=== PATIENT | male | born 1950 | race Caucasian/White ===

== ENCOUNTER 2017-08-13 14:18 | Emergency (ER) | payer MEDICARE, OTHER, SELFPAY ==
[2017-08-13 14:27] VITALS: BP 139/91; PULSE 85; RESP 15; TEMP 37.1; O2SAT 96
--- NOTE | 2017-08-13 14:40 | ED.SKABFB ---
HPI - Skin/Abscess/Foreign Bdy <STEPHEN Ellis - Last Filed: 08/13/17 22:08> General Chief complaint: Skin/Abscess/Foreign Body Stated complaint: Infection Time Seen by Provider: 08/13/17 14:23 History of Present Illness HPI narrative: A 66-year-old male here for complaint of erythema to his left lower extremity since yesterday. He states that he had a small sore that leaked some purulent material he states that he got it all out he also states that he cleaned it with hydrogen peroxide. He states he still has some erythema to his left lower extremity. He denies any trauma to the area. No fevers no chills. No other concerns or complaints although he does state that he would like to have some pain medications as he is waiting to get into pain management that starts next week. Patient is ambulatory into the emergency room. Related Data Home Medications Medication Instructions Recorded Confirmed omeprazole 20 mg PO DAILY #0 01/16/11 08/19/17 albuterol sulfate [Proventil HFA] 1 puff INH PRN PRN #17 gm 10/13/11 08/16/17 atenolol 100 mg PO QDAY #0 10/13/11 08/19/17 metformin [Glucophage] 500 mg PO BID #0 10/13/11 08/19/17 zolpidem 5 mg PO HSP PRN #0 10/13/11 08/19/17 furosemide [Lasix] 20 mg PO QDAY #0 08/26/16 08/19/17 lisinopril 5 mg PO QDAY #0 08/26/16 08/19/17 acetaminophen 650 mg PO PRN PRN #0 07/05/17 08/16/17 alum-mag hydroxide-simeth [Maalox 30 ml PO Q6HP PRN #0 07/05/17 08/16/17 Maximum Strength] carboxymethylcellulose sodium 1 drp OPHTH PRN PRN #0 07/05/17 08/19/17 [Refresh Tears] diazepam 5 mg PO Q12HP PRN #0 07/05/17 08/19/17 metoprolol succinate 50 mg PO QDAY #0 07/05/17 08/19/17 meclizine 25 mg PO TID 08/16/17 08/19/17 hydrocodone-acetaminophen 1 tab PO QID PRN 08/19/17 08/19/17 mupirocin 1 applic TOPICAL DIRECTED 08/19/17 08/19/17 Previous Rx's Medication Instructions Recorded clindamycin HCl 300 mg PO QID #28 cap 08/13/17 Allergies Allergy/AdvReac Type Severity Reaction Status Date / Time No Known Drug Allergies Allergy Unknown Verified 08/18/17 22:06 [NO KNOWN DRUG ALLERGIES] NSAIDS (Non-Steroidal AdvReac Intermediate BLEEDING Verified 08/18/17 22:06 Anti-Inflamma ULCERS celecoxib AdvReac Unknown Verified 08/18/17 22:06 diclofenac AdvReac Unknown Verified 08/18/17 22:06 oxycodone AdvReac Unknown Verified 08/18/17 22:06 prednisone AdvReac Unknown Verified 08/18/17 22:06 Review of Systems <STEPHEN Ellis - Last Filed: 08/13/17 22:08> Constitutional Denies chills, Denies fever(s), Denies lethargy and Denies weakness ENT Ears, Nose, Mouth, and Throat: Denies change in voice, Denies neck pain and Denies sore throat Cardiovascular Denies dyspnea and Denies dyspnea on exertion Respiratory Denies cough, Denies dyspnea, Denies dyspnea on exertion and Denies wheezing Musculoskeletal Denies neck pain Comments: Erythema to left lower extremity Integumentary/Breasts Denies pruritus, Denies erythema, Denies rash and Denies wounds Neurologic Denies weakness Allergic/Immunologic Denies wheezing Exam <STEPHEN Ellis - Last Filed: 08/13/17 22:08> Initial Vital Signs Initial Vital Signs: Vital Signs Temperature 98.8 F 08/13/17 14:27 Pulse Rate 85 08/13/17 14:27 Respiratory Rate 15 08/13/17 14:27 Blood Pressure 139/91 H 08/13/17 14:27 Pulse Oximetry 96 08/13/17 14:27 Const General: cooperative and well developed Nutritional Appearance: well nourished Orientation: alert, awake, oriented x3 and not confused [facility] Mouth: oral mucosae normal, oropharynx normal and moist mucous membranes Eyes General: appearance normal, both eyes and all related structures Conjunctivae: conjunctivae normal Sclera: sclerae normal Pupils: PERRL EOM: EOM intact bilaterally Resp Effort & Inspection: normal respiratory effort, able to speak in complete sentences, no respiratory distress and no use of accessory muscles Auscultation: clear to auscultation bilaterally, no rales, no rhonchi and no wheezes Cardio Rate: regular rate Rhythm: regular rhythm Heart Sounds: no click, no gallops, no murmurs and no rubs Pulses: normal peripheral pulses Skin Other: Neuro General: alert, oriented x3, gait normal and no focal motor deficits Cranial Nerves: CN's II-XI intact bilaterally Speech: speech normal Motor: strength 5/5 throughout Sensory Exam: no sensory deficits noted Extrem Other: Erythema to left anterior johnson no no induration no fluctuance. Distal sensation is intact. Distal pulses are intact. Distal range of motion intact <Se Jimenez DO - Last Filed: 09/01/17 07:34> Initial Vital Signs Initial Vital Signs: Vital Signs Temperature 98.8 F 08/13/17 14:27 Pulse Rate 85 08/13/17 14:27 Respiratory Rate 15 08/13/17 14:27 Blood Pressure 139/91 H 08/13/17 14:27 Pulse Oximetry 96 08/13/17 14:27 Course <STEPHEN Ellis - Last Filed: 08/13/17 22:08> Vital Signs - 8 hr 08/13/17 14:27 08/13/17 15:33 Temperature 98.8 F Pulse Rate 85 71 Respiratory Rate 15 16 Blood Pressure 139/91 H 109/71 Pulse Oximetry 96 98 <Se Jimenez DO - Last Filed: 09/01/17 07:34> Vital Signs - 8 hr 08/13/17 14:27 08/13/17 15:33 Temperature 98.8 F Pulse Rate 85 71 Respiratory Rate 15 16 Blood Pressure 139/91 H 109/71 Pulse Oximetry 96 98 MDM - Skin/Abscess/Foreign Bdy <STEPHEN Ellis - Last Filed: 08/13/17 22:08> MDM Narrative Medical decision making narrative: Slight erythema to the anterior left johnson no fluctuance or induration appreciated. Will treat for cellulitis. Patient states he has a history of MRSA will treat with clindamycin. [id number] Tylenol as needed for any discomfort. Follow up with primary care provider in the next few days for re-evaluation. For any worsening symptoms return to the emergency room. Discharge Plan Departure Patient Disposition: Home, Self-Care Clinical Impression: Cellulitis of left lower extremity Discharge Date/Time: 08/13/17 15:33 Interventions: ED Discharge Assessment Last Done: 08/13/17 15:33 Instructions: DI for Cellulitis -- Adult Activity Restrictions/Additional Instructions: Signs and symptoms presents as as cellulitis to left lower extremity. Urine placed on an antibiotic called clindamycin use as directed. Use [id number] Tylenol as needed for any discomfort. Follow up with primary care provider the next few days for re-evaluation. For any worsening symptoms return to the emergency room. Prescriptions: New clindamycin HCl 300 mg capsule 300 mg PO QID Qty: 28 RF: 0 No Action omeprazole 20 MG tablet,delayed release (DR/EC) 20 mg PO DAILY Qty: 0 RF: 0 metformin [Glucophage] 500 MG tablet 500 mg PO BID Qty: 0 RF: 0 albuterol sulfate [Proventil HFA] 90 MCG/PUFF HFA aerosol inhaler 1 puff INH PRN PRN (Reason: Shortness Of Breath) Qty: 17 RF: 0 atenolol 100 MG tablet 100 mg PO QDAY Qty: 0 RF: 0 zolpidem 5 MG tablet 5 mg PO HSP PRN (Reason: Sleep) Qty: 0 RF: 0 furosemide [Lasix] 20 MG tablet 20 mg PO QDAY Qty: 0 RF: 0 lisinopril 5 MG tablet 5 mg PO QDAY Qty: 0 RF: 0 acetaminophen 325 MG tablet 650 mg PO PRN PRN (Reason: Pain, Mild) Qty: 0 RF: 0 alum-mag hydroxide-simeth [Maalox Maximum Strength] 355 ML suspension 30 ml PO Q6HP PRN (Reason: Indigestion) Qty: 0 RF: 0 carboxymethylcellulose sodium [Refresh Tears] 15 ML drops 1 drp OPHTH PRN PRN (Reason: Dry Eyes) Qty: 0 RF: 0 diazepam 5 MG tablet 5 mg PO Q12HP PRN (Reason: Anxiety) Qty: 0 RF: 0 metoprolol succinate 50 MG tablet extended release 24 hr 50 mg PO QDAY Qty: 0 RF: 0 hydrocodone-acetaminophen 5-325 mg tablet 1 tab PO QID PRN (Reason: Pain, Severe) RF: 0 mupirocin 2 % ointment 1 applic Topical DIRECTED RF: 0 meclizine 25 mg tablet 25 mg PO TID RF: 0 Referrals: Jaun Ibanez MD [Non-Staff] - <Se Jimenez DO - Last Filed: 09/01/17 07:34> Cosign ED Attending Cosignature Attestation: I was immediately available in the department for consultation. This documentation has been reviewed and I agree with assessment and plan. Supervised by Se Jimenez DO
[2017-08-13 15:33] VITALS: BP 109/71; PULSE 71; RESP 16; O2SAT 98
== END 2017-08-13 15:33 | disposition home or self-care (01) ==
PROVIDERS: Emergency Provider Nurse Practitioner Family
DX: L03.116 Cellulitis of left lower limb (principal)
CPT/HCPCS: 99282

== ENCOUNTER 2017-08-16 16:22 | Emergency (ER) | payer MEDICARE, OTHER, SELFPAY ==
[2017-08-16 16:30] VITALS: BP 116/73; PULSE 70; RESP 20; TEMP 36.7; O2SAT 98; BMI 29.9
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
[2017-08-16 17:43] LABS: Add Manual Diff / Slide Review NO; Basophils Percent Auto 0.5 % (0-2); Eosinophils Percent Auto 2.6 % (2-4); Hematocrit 42.8 % (41-53); Hemoglobin 15.2 g/dL (13.5-17.5); Lymphocytes Percent Auto 33.1 % (25-40); Mean Corpuscular HGB Conc 35.6 % (30-36); Mean Corpuscular Hemoglobin 35.3 PG (26-34); Mean Corpuscular Volume 99.1 fL (80-100); Monocytes Percent Auto 10.7 % (3-14); Neutrophils Absolute Auto 3100 /uL (3000-5900); Neutrophils Percent Auto 53.1 % (50-75); Platelet Count 189 X10^3/uL (150-400); Red Blood Cell Count 4.32 X10^6/uL (4.5-5.9); Red Cell Distribution Width 12.8 % (11.6-14.8); White Blood Cell Count 5.7 X10^3/uL (4.5-11.0)
[2017-08-16 18:01] LABS: BUN Creatinine Ratio 23.3 (6-22); Calcium 9.3 mg/dL (8.4-10.2); Estimated Glomerular Filt Rate > 60.0 mL/min (>60); Glucose 123 mg/dL (80-110); HEMOLYSIS < 15 (0-50); Lactate (Lactic Acid) 2.5 mmol/L (0.7-2.1); Potassium 3.9 mmol/L (3.4-5.1); Sodium 145 mmol/L (137-145)
[2017-08-16 18:08] VITALS: BP 97/60; PULSE 62; RESP 15; O2SAT 100
[2017-08-16 19:00] VITALS: BP 99/60; PULSE 120
[2017-08-16 19:30] VITALS: BP 113/73; PULSE 85
[2017-08-16 19:32] VITALS: BP 99/60; PULSE 68; RESP 14; O2SAT 100
[2017-08-16 21:23] LABS: Reflexed Lactate in 2 Hours Y
== END 2017-08-16 20:09 | disposition home or self-care (01) ==
PROVIDERS: Emergency Provider Emergency Medicine
DX: R60.0 Localized edema (principal)
CPT/HCPCS: 36591; 80048; 83605; 85025; 99283

== ENCOUNTER 2017-08-17 21:34 | Emergency (ER) | payer MEDICARE, OTHER, SELFPAY ==
[2017-08-17 21:54] VITALS: BP 119/72; PULSE 76; RESP 16; TEMP 36.6; O2SAT 100; BMI 30.7
--- NOTE | 2017-08-17 22:06 | PC.NURSE ---
present for exam with MD Betancur. Pt c/o repeated MRSA infection/swelling of lower ext for >10 years. Pt reports he was told to come here to be admitted, can not relay who gave him this information. Exam is limited r/t need for frequent redirect of pt. Denies cough/fever/vomiting/cp/soa/diarrhea, no erythema/drainage present in lower legs, + pedal pulses
[2017-08-17] MEDS: SODIUM CHLORIDE 0.9% 1,000 ML 1000 ML IV (22:24)
[2017-08-17] MEDS: VANCOMYCIN 1,500 MG in SODIUM CHLORIDE 0.9% 500 ML 333.333 ML IV (22:25)
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
[2017-08-17 22:37] LABS: Lactate (Lactic Acid) 1.3 mmol/L (0.7-2.1)
[2017-08-17 22:40] LABS: BUN Creatinine Ratio 23.8 (6-22); Calcium 9.3 mg/dL (8.4-10.2); Estimated Glomerular Filt Rate > 60.0 mL/min (>60); Glucose 98 mg/dL (80-110); HEMOLYSIS 18 (0-50); Potassium 4.1 mmol/L (3.4-5.1); Sodium 145 mmol/L (137-145)
[2017-08-17 22:44] LABS: Add Manual Diff / Slide Review NO; Basophils Percent Auto 0.6 % (0-2); Eosinophils Percent Auto 1.8 % (2-4); Hematocrit 42.4 % (41-53); Hemoglobin 15.2 g/dL (13.5-17.5); Lymphocytes Percent Auto 33.3 % (25-40); Mean Corpuscular HGB Conc 35.8 % (30-36); Mean Corpuscular Hemoglobin 35.3 PG (26-34); Mean Corpuscular Volume 98.5 fL (80-100); Monocytes Percent Auto 9.6 % (3-14); Neutrophils Absolute Auto 3400 /uL (3000-5900); Neutrophils Percent Auto 54.7 % (50-75); Platelet Count 170 X10^3/uL (150-400); Red Blood Cell Count 4.31 X10^6/uL (4.5-5.9); Red Cell Distribution Width 12.5 % (11.6-14.8); White Blood Cell Count 6.2 X10^3/uL (4.5-11.0)
[2017-08-17 22:54] LABS: Procalcitonin < 0.05 ng/mL (<0.5)
[2017-08-18 00:40] VITALS: BP 111/64; PULSE 68; RESP 14; TEMP 36.6; O2SAT 99
== END 2017-08-18 00:40 | disposition home or self-care (01) ==
PROVIDERS: Emergency Provider Emergency Medicine
DX: R60.9 Edema, unspecified (principal); L03.119 Cellulitis of unspecified part of limb
CPT/HCPCS: 36415; 80048; 83605; 84145; 85025; 87040; 96365; 96366; 99283; 99284

== ENCOUNTER 2017-08-18 21:23 | Emergency (ER) | payer MEDICARE, OTHER, SELFPAY ==
[2017-08-18 22:02] VITALS: BP 120/79; PULSE 86; RESP 15; TEMP 37.1; O2SAT 98; BMI 29.9
--- NOTE | 2017-08-18 22:27 | DI.US.S_ITS ---
PROCEDURE: US PERIPH VENOUS LOW EXTREM BI INDICATIONS: swelling pain hx dvt TECHNIQUE: Real-time imaging, as well as color and pulse Doppler interrogation, were performed of the deep veins of both legs from the inguinal ligament to the popliteal fossa. COMPARISON: Surgeons SRCUS, US, VEINS EXTREMITY DUPLEX,BILAT, 06/22/2011, 14:21. FINDINGS: Right: The deep veins are normally compressible, and free of intraluminal thrombus. Color and pulse Doppler demonstrate normal phasic intravascular flow. There is normal augmentation response to distal compression maneuver. Absence of greater saphenous vein. Left: The deep veins are normally compressible, and free of intraluminal thrombus. Color and pulse Doppler demonstrate normal phasic intravascular flow. There is normal augmentation response to distal compression maneuver. Absence of greater saphenous vein. IMPRESSION: No deep venous thrombosis in lower extremities. Dictated by: Buddy Ny M.D. on 08/19/2017 at 7:58 Approved by: Buddy Ny M.D. on 08/19/2017 at 8:00
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
[2017-08-18 22:28] VITALS: BP 120/79; PULSE 86; RESP 15; TEMP 37.1; O2SAT 98; BMI 29.9
[2017-08-18 23:02] LABS: Add Manual Diff / Slide Review NO; Basophils Percent Auto 0.7 % (0-2); Eosinophils Percent Auto 1.5 % (2-4); Hematocrit 43.4 % (41-53); Hemoglobin 15.3 g/dL (13.5-17.5); Lymphocytes Percent Auto 27.3 % (25-40); Mean Corpuscular HGB Conc 35.3 % (30-36); Mean Corpuscular Hemoglobin 35.2 PG (26-34); Mean Corpuscular Volume 99.7 fL (80-100); Monocytes Percent Auto 8.4 % (3-14); Neutrophils Absolute Auto 5000 /uL (3000-5900); Neutrophils Percent Auto 62.1 % (50-75); Platelet Count 177 X10^3/uL (150-400); Red Blood Cell Count 4.36 X10^6/uL (4.5-5.9); Red Cell Distribution Width 12.5 % (11.6-14.8); White Blood Cell Count 8.1 X10^3/uL (4.5-11.0)
[2017-08-18 23:13] LABS: Estimated Glomerular Filt Rate > 60.0 mL/min (>60); Glucose 99 mg/dL (80-110); HEMOLYSIS 16 (0-50); Sodium 146 mmol/L (137-145)
[2017-08-18] MEDS: VANCOMYCIN 1,500 MG in SODIUM CHLORIDE 0.9% 500 ML 333.333 ML IV (23:20)
[2017-08-19 01:14] VITALS: BP 126/77; PULSE 78; RESP 16; O2SAT 100
== END 2017-08-19 01:16 | disposition home or self-care (01) ==
PROVIDERS: Emergency Provider Emergency Medicine
DX: L03.116 Cellulitis of left lower limb (principal)
CPT/HCPCS: 36591; 80048; 85025; 93970; 96365; 96366; 99283; 99284

== ENCOUNTER 2017-08-19 17:23 | Emergency (ER) | payer MEDICARE, OTHER, SELFPAY ==
[2017-08-19 17:29] VITALS: BP 111/66; PULSE 69; RESP 20; TEMP 36.8; O2SAT 100; BMI 29.9
--- NOTE | 2017-08-19 17:42 | ED_ITS ---
HPI - Fall <Jeannie La PA-C - Last Filed: 08/19/17 21:24> General Chief Complaint: Fall Stated Complaint: multiple falls Time Seen by Provider: 08/19/17 17:27 Source: patient Mode of arrival: EMS Limitations: no limitations History of Present Illness HPI Narrative: This 66-year-old male returns via EMS after falling. He states that he is trying to stay out of his wheelchair, and his legs are generally weak and he has chronic pain. He was walking on gravel and describes his knees buckling. He states that this happens frequently. He denies any head contusion , neck or spine pain. He states his chronic pain in all areas including his back and lower extremities are getting worse, however he thinks that the only thing that has worsened since he fell is perhaps his right foot and ankle pain which are bothering him most now. He denies any other new symptoms on systems review. He reports he did take his medications after discharged early this morning. Related Data Home Medications Medication Instructions Recorded Confirmed omeprazole 20 mg PO DAILY #0 01/16/11 08/19/17 albuterol sulfate [Proventil HFA] 1 puff INH PRN PRN #17 gm 10/13/11 08/16/17 atenolol 100 mg PO QDAY #0 10/13/11 08/19/17 metformin [Glucophage] 500 mg PO BID #0 10/13/11 08/19/17 zolpidem 5 mg PO HSP PRN #0 10/13/11 08/19/17 furosemide [Lasix] 20 mg PO QDAY #0 08/26/16 08/19/17 lisinopril 5 mg PO QDAY #0 08/26/16 08/19/17 acetaminophen 650 mg PO PRN PRN #0 07/05/17 08/16/17 alum-mag hydroxide-simeth [Maalox 30 ml PO Q6HP PRN #0 07/05/17 08/16/17 Maximum Strength] carboxymethylcellulose sodium 1 drp OPHTH PRN PRN #0 07/05/17 08/19/17 [Refresh Tears] diazepam 5 mg PO Q12HP PRN #0 07/05/17 08/19/17 metoprolol succinate 50 mg PO QDAY #0 07/05/17 08/19/17 meclizine 25 mg PO TID 08/16/17 08/19/17 hydrocodone-acetaminophen 1 tab PO QID PRN 08/19/17 08/19/17 mupirocin 1 applic TOPICAL DIRECTED 08/19/17 08/19/17 Previous Rx's Medication Instructions Recorded clindamycin HCl 300 mg PO QID #28 cap 08/13/17 doxycycline monohydrate 100 mg PO BID 10 Days #20 cap 08/17/17 Allergies Allergy/AdvReac Type Severity Reaction Status Date / Time No Known Drug Allergies Allergy Unknown Verified 08/18/17 22:06 [NO KNOWN DRUG ALLERGIES] NSAIDS (Non-Steroidal AdvReac Intermediate BLEEDING Verified 08/18/17 22:06 Anti-Inflamma ULCERS celecoxib AdvReac Unknown Verified 08/18/17 22:06 diclofenac AdvReac Unknown Verified 08/18/17 22:06 oxycodone AdvReac Unknown Verified 08/18/17 22:06 prednisone AdvReac Unknown Verified 08/18/17 22:06 Review of Systems <Jeannie La PA-C - Last Filed: 08/19/17 21:24> Review of Systems All systems reviewed & are unremarkable except as noted in HPI and below Exam <Jeannie La PA-C - Last Filed: 08/19/17 21:24> Narrative Exam Narrative: GENERAL APPEARANCE: Patient sitting comfortably, in no distress. PULMONARY: Lungs clear to auscultation bilaterally CV: Regular rhythm regular without murmur, normal S1 and S2, no S3 or S4 MUSCULOSKELETAL: He is tender throughout the right foot and ankle, more over the 1st metatarsal and medial malleolar region then other areas. He has full range of motion of the right foot toes, ankle somewhat limited secondary to tenderness. NEUROVASCULAR: Right foot is warm and pink with brisk cap refills EXTREMITIES: Bilateral moderate symmetric pitting edema. There is a black patch of rash are noted on the left johnson, no ulcerations noted on right Initial Vital Signs Initial Vital Signs: Vital Signs Temperature 98.2 F 08/19/17 17:29 Pulse Rate 69 08/19/17 17:29 Respiratory Rate 20 08/19/17 17:29 Blood Pressure 111/66 08/19/17 17:29 Pulse Oximetry 100 08/19/17 17:29 <Edmundo Betancur DO - Last Filed: 08/19/17 22:31> Initial Vital Signs Initial Vital Signs: Vital Signs Temperature 98.2 F 08/19/17 17:29 Pulse Rate 69 08/19/17 17:29 Respiratory Rate 20 08/19/17 17:29 Blood Pressure 111/66 08/19/17 17:29 Pulse Oximetry 100 08/19/17 17:29 Course <Jeannie La PA-C - Last Filed: 08/19/17 21:24> Orders Ordered: ED Orders 08/19/17 17:59 XR ankle RT min 3V Stat XR foot RT min 3V Stat Discontinued Medications Hydrocodone Bitart/Acetaminophen ([place] 5/325) 1 tab PO NOW ONE Stop: 08/19/17 18:00 Last Admin: 08/19/17 18:03 Dose: 1 tab Vital Signs - 8 hr 08/19/17 17:29 08/19/17 19:27 Temperature 98.2 F Pulse Rate 69 70 Respiratory Rate 20 16 Blood Pressure 111/66 Blood Pressure [Left Arm] 107/47 L Pulse Oximetry 100 100 <Edmundo Betancur DO - Last Filed: 08/19/17 22:31> Orders Ordered: ED Orders 08/19/17 17:59 XR ankle RT min 3V Stat XR foot RT min 3V Stat Discontinued Medications Hydrocodone Bitart/Acetaminophen ([place] 5/325) 1 tab PO NOW ONE Stop: 08/19/17 18:00 Last Admin: 08/19/17 18:03 Dose: 1 tab Vital Signs - 8 hr 08/19/17 17:29 08/19/17 19:27 Temperature 98.2 F Pulse Rate 69 70 Respiratory Rate 20 16 Blood Pressure 111/66 Blood Pressure [Left Arm] 107/47 L Pulse Oximetry 100 100 Discharge Plan Departure Patient Disposition: Home, Self-Care Clinical Impression: Contusion of right ankle, initial encounter, Contusion of foot, right Discharge Date/Time: 08/19/17 19:37 Interventions: ED Discharge Assessment Last Done: 08/19/17 19:34 Instructions: DI for Contusion Activity Restrictions/Additional Instructions: Continue wearing your brace and your usual treatments for your chronic pain. There does not appear to be any new bone injury to your foot or ankle today on the x-rays. If you have any persistent worsening pain you should follow up with your clinical specialty rep next week so that further testing can be done if needed. Avoid walking and stress on the foot and ankle for now and elevate as much as possible to help with swelling. Prescriptions: No Action omeprazole 20 MG tablet,delayed release (DR/EC) 20 mg PO DAILY Qty: 0 RF: 0 metformin [Glucophage] 500 MG tablet 500 mg PO BID Qty: 0 RF: 0 albuterol sulfate [Proventil HFA] 90 MCG/PUFF HFA aerosol inhaler 1 puff INH PRN PRN (Reason: Shortness Of Breath) Qty: 17 RF: 0 atenolol 100 MG tablet 100 mg PO QDAY Qty: 0 RF: 0 zolpidem 5 MG tablet 5 mg PO HSP PRN (Reason: Sleep) Qty: 0 RF: 0 furosemide [Lasix] 20 MG tablet 20 mg PO QDAY Qty: 0 RF: 0 lisinopril 5 MG tablet 5 mg PO QDAY Qty: 0 RF: 0 acetaminophen 325 MG tablet 650 mg PO PRN PRN (Reason: Pain, Mild) Qty: 0 RF: 0 alum-mag hydroxide-simeth [Maalox Maximum Strength] 355 ML suspension 30 ml PO Q6HP PRN (Reason: Indigestion) Qty: 0 RF: 0 carboxymethylcellulose sodium [Refresh Tears] 15 ML drops 1 drp OPHTH PRN PRN (Reason: Dry Eyes) Qty: 0 RF: 0 diazepam 5 MG tablet 5 mg PO Q12HP PRN (Reason: Anxiety) Qty: 0 RF: 0 metoprolol succinate 50 MG tablet extended release 24 hr 50 mg PO QDAY Qty: 0 RF: 0 clindamycin HCl 300 mg capsule 300 mg PO QID Qty: 28 RF: 0 hydrocodone-acetaminophen 5-325 mg tablet 1 tab PO QID PRN (Reason: Pain, Severe) RF: 0 mupirocin 2 % ointment 1 applic Topical DIRECTED RF: 0 meclizine 25 mg tablet 25 mg PO TID RF: 0 doxycycline monohydrate 100 mg capsule 100 mg PO BID 10 Days Qty: 20 RF: 0 Referrals: Jamie Becerra MD [Non-Staff] - <Edmundo Betancur DO - Last Filed: 08/19/17 22:31> Cosign ED Attending Cosignature Attestation: I was immediately available in the department for consultation. Documentation has been reviewed. I agree with assessment and plan.
--- NOTE | 2017-08-19 17:59 | DI.RAD.S_ITS ---
PROCEDURE: XR ANKLE RT MIN 3V INDICATIONS: pain status post fall (chronic injuries) TECHNIQUE: 3 views of the ankle were acquired. COMPARISON: [facility], CR, XR FOOT RT MIN 3V, 08/19/2017, 17:47. FINDINGS: Bones: No fractures or dislocations. Ankle mortise is normally aligned. No suspicious bony lesions. Soft tissues: No tibiotalar joint effusion. Achilles tendon appears normal. IMPRESSION: No acute trauma found. If there is clinical concern for presence of hidden fracture follow-up by delayed plain films or advanced imaging, such as CT or MRI, could be obtained. The normal superimposition of many osseous margins in this area reduces the study's ability to detect nondisplaced fractures. Dictated by: Ángel Guo M.D. on 08/19/2017 at 18:29 Approved by: Ángel Guo M.D. on 08/19/2017 at 18:30
--- NOTE | 2017-08-19 17:59 | DI.RAD.S_ITS ---
PROCEDURE: XR FOOT RT MIN 3V INDICATIONS: increased pain, fall (chronic injuries) TECHNIQUE: 3 views of the foot were acquired. COMPARISON: [facility], CR, XR ANKLE RT MIN 3V, 08/19/2017, 17:47. FINDINGS: Bones: No fractures or dislocations. No suspicious bony lesions. Soft tissues: No tibiotalar joint effusion. Achilles tendon appears normal. IMPRESSION: Moderate metatarsus primus varus and mild hallux out his morphology at the first ray. Mild bunion formation at the medial first metatarsal head. No trauma found. Dictated by: Ángel Guo M.D. on 08/19/2017 at 18:30 Approved by: Ángel Guo M.D. on 08/19/2017 at 18:31
[2017-08-19] MEDS: HYDROCODONE/ACET 5/325 TABLET 1 TAB PO (18:03)
[2017-08-19 19:27] VITALS: BP 107/47; PULSE 70; RESP 16; O2SAT 100
== END 2017-08-19 19:37 | disposition home or self-care (01) ==
PROVIDERS: Emergency Provider Internal Medicine
DX: S90.01XA Contusion of right ankle, initial encounter (principal); S90.31XA Contusion of right foot, initial encounter; W19.XXXA Unspecified fall, initial encounter
CPT/HCPCS: 73610; 73630; 99282; 99283

== ENCOUNTER 2017-09-12 23:04 | Emergency (ER) | payer MEDICARE, OTHER, SELFPAY ==
[2017-09-12 23:50] VITALS: BP 126/79; PULSE 98; RESP 18; TEMP 37.1; O2SAT 97; BMI 29.9
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
[2017-09-13 04:18] VITALS: BP 125/92; PULSE 100; RESP 16; TEMP 36.6; O2SAT 99
== END 2017-09-13 04:30 | disposition home or self-care (01) ==
PROVIDERS: Emergency Provider Emergency Medicine
DX: R60.0 Localized edema (principal)
CPT/HCPCS: 99282

== ENCOUNTER 2018-06-26 21:34 | Observation (INO) | payer MEDICARE, MEDICAID, SELFPAY ==
[2018-06-26 23:15] VITALS: BP 129/77; PULSE 73; RESP 15; TEMP 36.1; O2SAT 96
[2018-06-27] VITALS (8 sets, daily range): BP systolic 99–131; BP diastolic 58–75; PULSE 64–80; RESP 16–18; TEMP 36.1–36.8; O2SAT 97–100; BMI 31.4
[2018-06-27] MEDS: HYDROCODONE/ACET 10/325 TABLET 1 TAB PO ×3 (01:19→16:33)
--- NOTE | 2018-06-27 01:31 | P.HP_ITS ---
History of Present Illness Date Patient Seen: 06/27/18 Time Patient Seen: 00:10 Chief complaint: SYNCOPY Narrative: Mr. Diego Ibanez is a 67-year-old male patient who has a history of hypertension, non insulin-dependent diabetes, vertigo, COPD and chronic back pain who presents to [facility] for near syncopal episode earlier today. The patient has been a resident at [facility] and has recently undergone an ankle/foot fusion and was in [facility] for his 3rd postop visit with Dr. Rice. Following the visit the patient states he felt very weak, dizzy, nauseated and diaphoretic. Patient has a history of vertigo who reports episodes between 4 and 6 times per day however this was a much more involved occurrence prompting him to go to the ER for evaluation. The patient did not sustain a fall however he has indicates that he has fallen and is using a knee walker as he is n onweightbearing on his right leg which remains in a rigid splint. Patient is a somewhat marginal historian and information is augmented from the medical record. He denies neck or back pain and has had no chest pain. He does endorse recently feeling ill fevers and chills and laryngitis that have since resolved. He denies complaints of chest pain, palpitations or shortness of breath. He does complain of a productive cough indicating he will cough up a large amount of clear mucus. He does have a history in the medical record of COPD and has been smoking until 2 months ago. He reports no current abdominal pain, heartburn, nausea or vomiting. He reports no complaints of constipation or diarrhea. The patient describes lack of sensation below the waist related to lumbar spine disease along with by description appears to be neurogenic claudication as he describes walking and losing strength in his legs melting to the ground. He has had no loss of bowel or bladder control. At [facility] ER patient is found to be afebrile with heart rate of 67, blood pressure 126/65, respirations of 18 and saturation of 97% on room air. The patient has remarkable laboratory findings were a potassium of 5.3, had an anion gap of 13, BUN of 16 and creatinine of 0.88, LFTs within normal range. He did have a positive D-dimer at 0.56. He has a normal white count 6.6 with hemoglobin 13.7 and hematocrit of 14.6. His troponin T was less than 0.010. The patient did undergo a CT angio for rule out of pulmonary embolism with negative findings of embolism, lung consolidation or pleural effusions. His chest x-ray revealed no acute cardiopulmonary disease. He did have an EKG however the tracing is not present for review and found to have a sinus rhythm with a rate of 70 with prolonged QT interval, no ischemic changes as interpreted by the ER physician at [facility]. The patient is transferred to [facility] for further evaluation of near syncope, prolonged QT interval and hyperkalemia. Patient History Medical History (Updated 06/27/18 @ 01:18 by STEPHEN Moseley) Duodenal ulcer (Acute) History of DVT (deep vein thrombosis) (Acute) History of MRSA infection (Acute) History of cellulitis (Acute) Hyperlipidemia (Acute) Hypertension (Acute) Lumbar stenosis with neurogenic claudication (Acute) Asthma (Acute) COPD (chronic obstructive pulmonary disease) (Acute) Chronic back pain (Acute) Diabetes (Acute) Surgical History (Updated 06/27/18 @ 01:19 by STEPHEN Moseley) History of ankle fusion (Acute) History of hemorrhoidectomy (Acute) History of gastric bypass (Acute) S/P cervical spinal fusion (Acute) Family History (Updated 06/27/18 @ 01:21 by STEPHEN Moseley) Father Leukemia Mother Brain cancer Sister Heart attack Social History household members: none Smoking Status: Current every day smoker Family & Social History Family History (Updated 06/27/18 @ 01:21 by STEPHEN Moseley) Father Leukemia Mother Brain cancer Sister Heart attack Tobacco & Substance use: Smoking Status Current every day smoker alcohol intake frequency holiday/special occasion Substance Use Type does not use Comment: The patient lives alone in his RV. He has been since 2002. His parents of post his father from leukemia and his mother from brain cancer. He has 3 half brothers who are healthy and 2 half sisters 1 who has had a heart attack in the other is developmentally delayed. Smoking: Patient has been 1/2 pack per day smoker for over 30 years stating he will stop intermittently for 3-5 years. He quit smoking 2 months ago Alcohol: Light to moderate alcohol most days Substance use: Patient denies recreation pharmaceuticals herbal or cannabis products. Advanced directives: Patient wishes to be a FULL [employer]. He designates his friends Clive Mckeon or John Rai to be his surrogate decision makers. Meds Home Medications Medication Instructions Recorded Confirmed Type omeprazole 20 mg PO DAILY #0 01/16/11 08/19/17 History albuterol sulfate [Proventil HFA] 1 puff INH PRN PRN #17 gm 10/13/11 08/16/17 History atenolol 100 mg PO QDAY #0 10/13/11 08/19/17 History metformin [Glucophage] 500 mg PO BID #0 10/13/11 08/19/17 History zolpidem 5 mg PO HSP PRN #0 10/13/11 08/19/17 History furosemide [Lasix] 20 mg PO QDAY #0 08/26/16 08/19/17 History lisinopril 5 mg PO QDAY #0 08/26/16 08/19/17 History acetaminophen 650 mg PO PRN PRN #0 07/05/17 08/16/17 History alum-mag hydroxide-simeth [Maalox 30 ml PO Q6HP PRN #0 07/05/17 08/16/17 History Maximum Strength] carboxymethylcellulose sodium 1 drp OPHTH PRN PRN #0 07/05/17 08/19/17 History [Refresh Tears] diazepam 5 mg PO Q12HP PRN #0 07/05/17 08/19/17 History metoprolol succinate 50 mg PO QDAY #0 07/05/17 08/19/17 History clindamycin HCl 300 mg PO QID #28 cap 08/13/17 08/19/17 Rx meclizine 25 mg PO TID 08/16/17 08/19/17 History hydrocodone-acetaminophen 1 tab PO QID PRN 08/19/17 08/19/17 History mupirocin 1 applic TOPICAL DIRECTED 08/19/17 08/19/17 History cephalexin 500 mg PO QID #40 cap 09/13/17 Rx sulfamethoxazole-trimethoprim 1 tab PO BID #20 tab 09/13/17 Rx Allergies Allergy/AdvReac Type Severity Reaction Status Date / Time No Known Drug Allergies Allergy Unknown Verified 08/18/17 22:06 [NO KNOWN DRUG ALLERGIES] NSAIDS (Non-Steroidal AdvReac Intermediate BLEEDING Verified 08/18/17 22:06 Anti-Inflamma ULCERS celecoxib AdvReac Unknown Verified 08/18/17 22:06 diclofenac AdvReac Unknown Verified 08/18/17 22:06 oxycodone AdvReac Unknown Verified 08/18/17 22:06 prednisone AdvReac Unknown Verified 08/18/17 22:06 Review of Systems Review of Systems All systems reviewed & are unremarkable except as noted in HPI and below Exam Vital Signs (past 8 hours): - 06/26/18 23:15 Temperature 97 F L Pulse Rate 73 Respiratory Rate 15 Blood Pressure 129/77 Pulse Oximetry 96 Narrative Exam Narrative: GENERAL APPEARANCE: well developed, overweight male with a BMI of 31.4 who is afebrile and in no acute distress. HEAD: Normocephalic, atraumatic, no scalp lesions. EYES: pupils equal, round, reactive to light and accommodation, sclera non- icteric, extraocular movement intact without nystagmus. EARS: normal external structures, no ear pain NOSE: Frontal sinus tenderness on percussion, no rhinorrhea ORAL CAVITY: mucosa moist without lesions or exudate, palate normal, tongue in midline. THROAT: normal, no erythema, no exudate, pharynx normal, uvula midline. NECK/THYROID: Decreased range of motion, no jugular venous distention, no carotid bruit, no thyromegaly, trachea midline. LYMPH NODES: no cervical or supraclavicular lymphadenopathy. SKIN: warm and dry, no suspicious lesions, no rashes, good turgor. HEART: regular rate and rhythm, S1-S2 without murmur, rubs, gallops, 2+ radial pulses, 1+ edema left lower extremity LUNGS: Breath sounds with upper wheezing no basilar crackles or coarseness, dry nonproductive cough on deep inspiration CHEST: Symmetrical movement, no accessory muscle use, no pain to AP and lateral compression. ABDOMEN: Soft, no distention, no epigastric or abdominal tenderness on palpation, no guarding or peritoneal signs, no organomegaly, no flank or suprapubic tenderness BACK: Nontender to palpation, no palpable muscle spasms, no CVA tenderness on percussion EXTREMITIES: Velcro brace right lower extremity, distal CMS intact, moves all extremities, strength is 5/5 and symmetrical, brisk capillary refill NEUROLOGIC: AAO x4, cranial nerves II-XII grossly intact , motor strength normal upper and lower extremities, diminished sensation distal to the hips bilaterally, no tremor PSYCH: alert, difficult historian with tangental thought, good eye contact, stable mood with congruent affect Assessment & Plan Assessment & Plan narrative: The patient is a direct transfer from [facility] to [facility] for evaluation near syncope, hyperkalemia and prolonged QT syndrome. 1. Near-syncope, not evident on admission, acute -the patient is asymptomatic upon arrival at [facility]. -patient reports 4-6 episodes daily of symptomatic vertigo with dizziness weakness and nausea, today was worse than normal with associated diaphoresis -evaluation at [facility] included a chest x-ray that was found to be unremarkable, and is negative CTA for PE. -12 lead EKG reportedly reveals a prolonged QT interval however tracing is not available for review, prior EKG dated 08/2016 shows a sinus rhythm with a QTC upper and normal at 440 milliseconds. Will repeat 12 lead EKG in the morning. -will keep patient on telemetry 2. Vertigo, chronic not present on admission -patient routinely takes meclizine 25 mg 3 times daily as needed. -he has previously undergone Nain maneuver with no change in symptomatology. -etiology of vertigo at this time is unknown 3. Chronic obstructive pulmonary disease, chronic, active -patient with upper lobe wheezing on evaluation, desaturates into the upper 80s with talking. -patient has Proventil handheld inhaler as home medication that has not been used -patient started on oxygen nasal cannula to keep saturation greater than 90 % -DuoNeb ordered every 6 hours as needed while awake 4. Diabetes type 2, non-insulin dependent, controlled -patient taking metformin 500 mg twice daily -glucose on lab work at [facility] reveals a glucose of 101 -will check glucose a.c. HS and cover with low range sliding scale insulin 5. Hypertension, chronic -blood pressure is 129/77 -will continue lisinopril 5 mg daily. The patient is transfer to [facility] and admitted related to severity of symptoms and ongoing evaluation monitoring. Patient is admitted observation status with expected length of stay less than 2 midnights.
--- NOTE | 2018-06-27 01:36 | PC.NURSE ---
Admission Note: Pt arrived via EMS, was able to transfer himself to hospital bed, wearing immobilizing boot on right ankle from surgery May 26 for pin placement and Achilles tendon removal, pt reports that he is non-weight bearing on right foot and came with wheelchair. Pt had been at [facility] for post surgical care but had been experiencing multiple syncopal and near syncopal episodes that included nausea and sweating. Pt is a type 2 diabetic. During assessment pt reported that he has no sensation from hip level down, skin on LLE has appearance of various scabs and healed wounds that resemble arterial insufficiency ulcers to which pt confirms a long standing but now healed ulcer was present. Pt has a healing incision on the back of RLE from heal to below calf. No other skin issues to note. Respiratory assessment was noted for some posterior upper lobe expiratory wheezes initially but cleared quickly, pt reported coughing up a phelgm ball during his EMS trip and that he has been having a dry cough. Pt is a long standing every day smoker. Heart rate was normal with regular rate, pt does have bilateral 2+ pitting edema, pt is on telemetry to syncope and hx of long QT and HTN. Pt was oriented to room, call light, safety checks done, was dressed in a yellow gown, bed alarm initiated, pt acknowledged all.
[2018-06-27] MEDS: ALBUTEROL/IPRATROPIUM 3 ML AMPUL INH (02:01)
[2018-06-27 05:48] LABS: RBC Urine None Seen (0-5/HPF)
[2018-06-27 06:05] LABS: Magnesium 2.1 mg/dL (1.6-2.3)
[2018-06-27 06:05] LABS: Appearance Urine UA CLEAR; Bilirubin Urine UA NEGATIVE (NEGATIVE); Color Urine UA YELLOW; Glucose Urine UA NEGATIVE (Negative); Ketones Urine UA NEGATIVE (NEGATIVE); Leukocyte Esterase Urine UA NEGATIVE (NEGATIVE); Nitrite Urine UA NEGATIVE (Negative); Occult Blood Urine UA NEGATIVE (Negative); Protein Urine UA NEGATIVE (Negative); Specific Gravity Urine UA 1.015 (1.000-1.035); Urobilinogen Urine UA 0.2 E.U./dL (0.2); pH Urine UA 6.5 (4.5-8.0)
[2018-06-27 06:08] LABS: Add Manual Diff / Slide Review NO; Basophils Absolute Auto 0 /uL (0-100); Basophils Percent Auto 0.3 % (0-2); Eosinophils Absolute Auto 100 /uL (0-450); Eosinophils Percent Auto 2.4 % (2-4); Hematocrit 36.9 % (41-53); Lymphocytes Absolute Auto 1600 /uL (1100-4500); Lymphocytes Percent Auto 30.1 % (25-40); Mean Corpuscular HGB Conc 35.1 % (30-36); Mean Corpuscular Hemoglobin 35.4 PG (26-34); Mean Corpuscular Volume 100.9 fL (80-100); Monocytes Absolute Auto 600 /uL (0-900); Monocytes Percent Auto 11.5 % (3-14); Neutrophils Absolute Auto 3100 /uL (1500-7000); Neutrophils Percent Auto 55.7 % (50-75); Platelet Count 211 X10^3/uL (150-400); Red Blood Cell Count 3.66 X10^6/uL (4.5-5.9); Red Cell Distribution Width 12.5 % (11.6-14.8); White Blood Cell Count 5.5 X10^3/uL (4.5-11.0)
[2018-06-27 06:36] LABS: Bacteria Urine Occasional (0-1); Culture Indicated Urine Cult Not Indicated; WBC Urine 0-1/HPF (0-5/HPF)
[2018-06-27 06:39] LABS: Hemoglobin A1C% w Est Avg Glu 5.2 % (4.0-6.0)
[2018-06-27] MEDS: SODIUM CHLORIDE 0.9% FLUSH 10 ML IV ×2 (08:55→21:07)
[2018-06-27] MEDS: LISINOPRIL 5 MG TABLET PO (08:56)
[2018-06-27] MEDS: ENOXAPARIN 40 MG/0.4 ML SYRINGE SUBCUT (08:56)
--- NOTE | 2018-06-27 11:00 | PM.PN.1 ---
Subjective Date Patient Seen: 06/27/18 Time Patient Seen: 10:45 Interval history: Diego Ibanez is a 67-year-old male who was admitted last night for vertigo. He states that he actually feels worse as he speaks to me. He also feels like his lungs are filling up with liquid and coughed up some yellow tinged sputum. He denies fever. He is current lady residing at [facility] [place] and undergoing rehab status post right ankle fusion on May 26. It appears when he is discussing something other than his vertigo, it does not seem to be affecting him. When I asked about the vertigo he said as he started to describe his symptoms that it was getting worse as he was speaking. He denied any issues with speaking. He does state that he has had 2 lumbar laminectomies and is recommended to have a lumbar fusion. He states after walking for 30 yd, he feels like he has increased numbing and paresthesias from his feet upwards to his waist. Apparently this is a chronic problem. Exam Vital Signs (past 8 hours): - 06/27/18 05:00 06/27/18 07:25 06/27/18 08:56 Temperature 97 F L 97.1 F L Pulse Rate 70 64 Respiratory Rate 18 16 Blood Pressure 124/75 108/62 108/62 Pulse Oximetry 98 100 Const General: cooperative, healthy appearing, comfortable and other (Cushionoid appearing) Nutritional Appearance: obese Orientation: alert, awake and oriented x3 [facility] Head: normocephalic and atraumatic Eyes General: appearance normal, both eyes and all related structures Neck Neck: normal visual inspection, full ROM, trachea midline, supple and No JVD Chest Chest: normal inspection of the chest Resp Effort & Inspection: normal respiratory effort, able to speak in complete sentences, no audible wheezes, respiratory effort not decreased and not labored Auscultation: clear to auscultation bilaterally Cardio Rate: regular rate Rhythm: regular rhythm Heart Sounds: S1 normal, S2 normal and no murmurs GI Inspection: normal to inspection Palpation: soft and No tender Auscultation: normal bowel sounds Back/Spine/Pelvis Back: normal to inspection Skin General: no rashes or lesions noted and turgor normal Neuro General: alert, awake, oriented x3 and normal light touch, pain and propioception Cognition: normal cognition Speech: speech normal Sensory Exam: no sensory deficits noted Extrem Right upper extremity: normal to inspection and full ROM; no edema Left upper extremity: normal to inspection and full ROM; no edema Right lower extremity: normal to inspection and full ROM; no edema Other: Has a walking shoe on his right foot, s/p ankle surgery 1 month ago. Psych Speech and Movement: other (Speech tangential) Mood: congruent mood Affect: normal affect Attitude: cooperative Thought Process: loose association Thought Content: normal Objective Labs Result Diagrams: 06/27/18 05:20 Labs: Laboratory Results - last 24 hr 06/27/18 06/27/18 06/27/18 05:20 05:20 05:20 WBC 5.5 RBC 3.66 L Hgb 13.0 L Hct 36.9 L MCV 100.9 H MCH 35.4 H MCHC 35.1 RDW 12.5 Plt Count 211 Neut % (Auto) 55.7 Lymph % (Auto) 30.1 [place] % (Auto) 11.5 Eos % (Auto) 2.4 Baso % (Auto) 0.3 Neut # (Auto) 3100 Lymph # (Auto) 1600 [place] # (Auto) 600 Eos # (Auto) 100 Baso # (Auto) 0 Hemoglobin A1c 5.2 Magnesium 2.1 Urine Color Urine Appearance Urine pH Ur Specific [place] Urine Protein Urine Glucose (UA) Urine Ketones Urine Occult Blood Urine Nitrate Urine Bilirubin Urine Urobilinogen Ur Leukocyte Esterase Urine RBC Urine WBC Urine Bacteria Ur Culture Indicated? 06/27/18 05:47 WBC RBC Hgb Hct MCV MCH MCHC RDW Plt Count Neut % (Auto) Lymph % (Auto) [place] % (Auto) Eos % (Auto) Baso % (Auto) Neut # (Auto) Lymph # (Auto) [place] # (Auto) Eos # (Auto) Baso # (Auto) Hemoglobin A1c Magnesium Urine Color Yellow Urine Appearance Clear Urine pH 6.5 Ur Specific [place] 1.015 Urine Protein Negative Urine Glucose (UA) Negative Urine Ketones Negative Urine Occult Blood Negative Urine Nitrate Negative Urine Bilirubin Negative Urine Urobilinogen 0.2 Ur Leukocyte Esterase Negative Urine RBC None seen Urine WBC 0-1/hpf Urine Bacteria Occasional (0-1) Ur Culture Indicated? Cult not indicated Assessment & Plan (1) Chronic low back pain: Problem details: Patient is being assessed for a lumbar fusion by neurosurgery in [place] Current visit: Yes Status: Chronic (2) History of arthroplasty of right ankle: Problem details: 05/26/18. Continue PT Current visit: Yes Status: Acute (3) Vertigo: Current visit: Yes Status: Acute Quality VTE Deep Vein Thrombosis/Pulmonary Embolism Present on Admission: No
--- NOTE | 2018-06-27 11:12 | P.PN_ITS ---
Subjective Date Patient Seen: 06/27/18 Time Patient Seen: 10:45 Interval history: Diego Ibanez is a 67-year-old male who was admitted last night for vertigo. He states that he actually feels worse as he speaks to me. He also feels like his lungs are filling up with liquid and coughed up some yellow tinged sputum. He denies fever. He is current lady residing at [facility] and undergoing rehab status post right ankle fusion on May 26. It appears when he is discussing something other than his vertigo, it does not seem to be affecting him. When I asked about the vertigo he said as he started to describe his symptoms that it was getting worse as he was speaking. He d enied any issues with speaking. He does state that he has had 2 lumbar laminectomies and is recommended to have a lumbar fusion. He states after walking for 30 yd, he feels like he has increased numbing and paresthesias from his feet upwards to his waist. Apparently this is a chronic problem. Exam Vital Signs (past 8 hours): - 06/27/18 05:00 06/27/18 07:25 06/27/18 08:56 Temperature 97 F L 97.1 F L Pulse Rate 70 64 Respiratory Rate 18 16 Blood Pressure 124/75 108/62 108/62 Pulse Oximetry 98 100 Const General: cooperative, healthy appearing, comfortable and other (Cushionoid appearing) Nutritional Appearance: obese Orientation: alert, awake and oriented x3 [facility] [place] Head: normocephalic and atraumatic Eyes General: appearance normal, both eyes and all related structures Neck Neck: normal visual inspection, full ROM, trachea midline, supple and No JVD Chest Chest: normal inspection of the chest Resp Effort & Inspection: normal respiratory effort, able to speak in complete senten carisa, no audible wheezes, respiratory effort not decreased and not labored Auscultation: clear to auscultation bilaterally Cardio Rate: regular rate Rhythm: regular rhythm Heart Sounds: S1 normal, S2 normal and no murmurs GI Inspection: normal to inspection Palpation: soft and No tender Auscultation: normal bowel sounds Back/Spine/Pelvis Back: normal to inspection Skin General: no rashes or lesions noted and turgor normal Neuro General: alert, awake, oriented x3 and normal light touch, pain and propioceptio n Cognition: normal cognition Speech: speech normal Sensory Exam: no sensory deficits noted Extrem Right upper extremity: normal to inspection and full ROM; no edema Left upper extremity: normal to inspection and full ROM; no edema Right lower extremity: normal to inspection and full ROM; no edema Other: Has a walking shoe on his right foot, s/p ankle surgery 1 month ago. Psych Speech and Movement: other (Speech tangential) Mood: congruent mood Affect: normal affect Attitude: cooperative Thought Process: loose association Thought Content: normal Objective Labs Result Diagrams: 06/27/18 05:20 Labs: Laboratory Results - last 24 hr 06/27/18 06/27/18 06/27/18 05:20 05:20 05:20 WBC 5.5 RBC 3.66 L Hgb 13.0 L Hct 36.9 L MCV 100.9 H MCH 35.4 H MCHC 35.1 RDW 12.5 Plt Count 211 Neut % (Auto) 55.7 Lymph % (Auto) 30.1 [place] % (Auto) 11.5 Eos % (Auto) 2.4 Baso % (Auto) 0.3 Neut # (Auto) 3100 Lymph # (Auto) 1600 [place] # (Auto) 600 Eos # (Auto) 100 Baso # (Auto) 0 Hemoglobin A1c 5.2 Magnesium 2.1 Urine Color Urine Appearance Urine pH Ur Specific [place] Urine Protein Urine Glucose (UA) Urine Ketones Urine Occult Blood Urine Nitrate Urine Bilirubin Urine Urobilinogen Ur Leukocyte Esterase Urine RBC Urine WBC Urine Bacteria Ur Culture Indicated? 06/27/18 05:47 WBC RBC Hgb Hct MCV MCH MCHC RDW Plt Count Neut % (Auto) Lymph % (Auto) [place] % (Auto) Eos % (Auto) Baso % (Auto) Neut # (Auto) Lymph # (Auto) [place] # (Auto) Eos # (Auto) Baso # (Auto) Hemoglobin A1c Magnesium Urine Color Yellow Urine Appearance Clear Urine pH 6.5 Ur Specific [place] 1.015 Urine Protein Negative Urine Glucose (UA) Negative Urine Ketones Negative Urine Occult Blood Negative Urine Nitrate Negative Urine Bilirubin Negative Urine Urobilinogen 0.2 Ur Leukocyte Esterase Negative Urine RBC None seen Urine WBC 0-1/hpf Urine Bacteria Occasional (0-1) Ur Culture Indicated? Cult not indicated Assessment & Plan (1) Chronic low back pain: Problem details: Patient is being assessed for a lumbar fusion by neurosurgery in [place] Current visit: Yes Status: Chronic (2) History of arthroplasty of right ankle: Problem details: 05/26/18. Continue PT Current visit: Yes Status: Acute (3) Vertigo: Current visit: Yes Status: Acute Quality VTE Deep Vein Thrombosis/Pulmonary Embolism Present on Admission: No
--- NOTE | 2018-06-27 11:36 | PT.IIE ---
Surgical History (Last Updated 06/27/18 @ 11:11 by STEPHEN Matos) History of arthroplasty of right ankle (Acute) History of ankle fusion (Acute) History of hemorrhoidectomy (Acute) History of gastric bypass (Acute) S/P cervical spinal fusion (Acute) Medical History (Last Updated 06/27/18 @ 11:11 by STEPHEN Matos) Chronic low back pain (Chronic) Duodenal ulcer (Acute) History of DVT (deep vein thrombosis) (Acute) History of MRSA infection (Acute) History of cellulitis (Acute) Hyperlipidemia (Acute) Hypertension (Acute) Lumbar stenosis with neurogenic claudication (Acute) Asthma (Acute) COPD (chronic obstructive pulmonary disease) (Acute) Chronic back pain (Acute) Diabetes (Acute) Physical Therapy Inpatient Evaluation/Re-Eval M1 PT/OT-IP Prior Functional Status Start: 06/27/18 12:32 Freq: NEEDED Status: Active Protocol: Document 06/27/18 11:36 DLM (Rec: 06/27/18 13:48 DLM [email or web address]) Medical Review Prior Functional Status Medical History Reviewed Yes Diet/Fluid Consistency Regular Communication WNL Mobility and Gait Pt has been using a wheelchair since his ankle surgery . He has hx of walking with knee scooters, FWW and canes in past following surgeries and injuries. He has a custom wheelchair at home. He has a hx of falls. He reports he has more surgery planned on his low back and jaw. Activities of Daily Living and IADL's Independent at home, has been getting assistance while at [facility] Prior Functional Level (Other details) right ankle surgery on 05/26/18 at [facility] with boot The wheelchair in his hospital room is from [facility]. Social History Household Members none Living Arrangements RV Number of Floors (Floors) One Floor Home Equipment Front Wheel Walker Four Wheel Walker Straight Cane Manual Wheelchair Additional Social History Comment hx of anterior cervical fusion M2 PT-IP Current Condition Start: 06/27/18 12:32 Freq: NEEDED Status: Active Protocol: Document 06/27/18 11:36 DLM (Rec: 06/27/18 13:48 DLM [email or web address]) Physical Therapy Current Condition Current Condition Evaluation Date 06/27/18 Treatment Diagnosis syncopy, impaired mobility/ gait Onset Date 04/01/19 Precautions Brace right ankle at all times, NWB right ankle since 05/26/18 surgery with ORIF Other Precautions no orders for ROM on right ankle, chronic vertigo Weight Bearing Status Weight Bearing Status Non-Weight Bearing M3 PT-IP Subjective Start: 06/27/18 12:32 Freq: NEEDED Status: Active Protocol: Document 06/27/18 11:36 DLM (Rec: 06/27/18 13:48 DLM [email or web address]) Subjective Physical Therapy Visit Type Type Initial Evaluation Visit Start Time 11:05 Visit Stop Time 11:36 Total Visit Minutes 31 Number of MECHANICAL DESIGN ENGINEER FACILITIES Visits 0 Physical Therapy Visit Comments Patient Comments He believes he is not supposed to do rehab now Patient Goals he is unable to give a clear goal at this time, verbalizes desire to have future surgeries on his back and jaw M4 PT-IP Mobility and Gait Start: 06/27/18 12:32 Freq: NEEDED Status: Active Protocol: Document 06/27/18 11:36 DLM (Rec: 06/27/18 13:48 DLM [email or web address]) PT-Bed Mobility Assessment Rolling Type of Rolling Bilateral Level of Assist Independent Supine to Sit Supine to Sit Independent Sit to Supine Sit to Supine Independent Scooting Scooting to Edge of Bed Independent Scooting Up and Down in Bed Independent PT-Transfer Assessment Sit to and From Stand Sit to and from Stand Standby Assistance Contact Guard Assistance Use of Upper Extremities Equipment Transfer Assistive Device None Gait Belt Transfers Transfer Destination Chair Bedside Commode Transfer Technique Squat Pivot Transfer Ability Level of Assist Standby Assistance Contact Guard Assistance Use of Upper Extremities Comments Mobility Comments pt able to stay NWB on right ankle for squat pivot transfers using UE support Gait Assessment Comments Gait Comments did not attempt gait this visit, pt reports he has been using the wheelchair for mobility, hx of falls attempting gait with knee scooter PT-Balance Assessment Sitting Balance and Reactions Static Sitting Balance Ability Normal Dynamic Sitting Balance Ability Normal M5 PT-IP Objective Assessments Start: 06/27/18 12:32 Freq: NEEDED Status: Active Protocol: Document 06/27/18 11:36 DLM (Rec: 06/27/18 13:48 DLM [email or web address]) Orientation Orientation/Cognition Level of Alertness Alert Orientation Name Age Birthday Month Date Year Day of Week Place Situation Language Function Ability No Deficits Noted Safety Awareness Understands Safety Issues Memory Description No Deficits Noted Comments tangential, decreased ability to stay focused on current issues, talks extensively about his past injuries Gross Range of Motion Upper Extremity ROM Assessment Within Functional Limits Lower Extremity ROM Assessment Right Impaired Impairments right ankle/foot immobilized in post-op boot Strength Upper Extremity Strength Assessment Within Functional Limits Lower Extremity Strength Assessment Right Impaired Ankle unable to test, immobilized since sx 05/26/18 Coordination Assessment Gross Coordination Gross Coordination WNL Sensation Assessment Sensation Gross Sensation Right LE Impaired Left LE Impaired Light Touch Impaired Sensation Description Numbness Comments Sensation Comments hx of impaired sensation bilateral LE's below his waist Muscle Tone Muscle Tone WNL Yes M6 PT-IP Treatment Start: 06/27/18 12:32 Freq: NEEDED Status: Active Protocol: Document 06/27/18 11:36 DLM (Rec: 06/27/18 13:48 DLM [email or web address]) Physical Therapy Treatment Education Education Provided Safety M7 PT-IP Assessment and Plan Start: 06/27/18 12:32 Freq: NEEDED Status: Active Protocol: Document 06/27/18 11:36 DLM (Rec: 06/27/18 13:48 DLM [email or web address]) PT Summary Assessment and Plan Potential Rehabilitation Potential Good Status of Condition at Evaluation Evolving Summary Impairments Pain ROM Strength Balance Transfers Gait Activity Tolerance Assessment Summary Diego is reluctant to work with Physical Therapy today. He reports mild dizziness while sitting up that he reports is chronic. No syncopal symptoms during this visit. He tolerated transfers to bedside commode and recliner with CG/SBA for safety. He describes a hx of many falls. Anticipate he will return to [facility] at discharge. Will discharge physical therapy at this time and defer further physical therapy needs to SNF rehab at [facility]. He is safe to do transfers in his room with nursing while hospitalized. Frequency of Treatment Frequency Of Treatment Discharge Recommendations To Nursing Amount of Assist Needed 1 Person Assist Discharge Recommendations PT Discharge Recommendations SNF Rehab Other Discharge Recommendations return to [facility]
[2018-06-27] MEDS: INSULIN ASPART 100 UNIT/ML INSULN PEN SUBCUT (11:40)
[2018-06-27 12:47] LABS: Blood Urea Nitrogen 20 mg/dL (9-20); Calcium 9.1 mg/dL (8.4-10.2); Carbon Dioxide 26 mmol/L (22-32); Chloride 103 mmol/L (98-107); Estimated Glomerular Filt Rate > 60.0 mL/min (>60); Glucose 105 mg/dL (80-110); HEMOLYSIS 16 (0-50); Potassium 4.3 mmol/L (3.4-5.1); Sodium 137 mmol/L (137-145)
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
[2018-06-28] MEDS: HYDROCODONE/ACET 10/325 TABLET 1 TAB PO ×2 (00:21→08:11)
[2018-06-28 05:10] VITALS: BP 112/64; PULSE 63; RESP 16; TEMP 36.5; O2SAT 97
[2018-06-28 08:00] VITALS: BP 106/60; PULSE 60; RESP 16; TEMP 36.6; O2SAT 97
[2018-06-28 08:12] VITALS: BP 106/60
[2018-06-28] MEDS: LISINOPRIL 5 MG TABLET PO (08:12)
[2018-06-28] MEDS: ENOXAPARIN 40 MG/0.4 ML SYRINGE SUBCUT (08:12)
[2018-06-28] MEDS: SODIUM CHLORIDE 0.9% FLUSH 10 ML IV (08:12)
[2018-06-28 12:00] VITALS: BP 113/67; PULSE 64; RESP 16; TEMP 36.5; O2SAT 98
[2018-06-28] MEDS: MECLIZINE HCL 12.5 MG TABLET 25 MG PO (12:11)
--- NOTE | 2018-06-28 12:11 | PC.NURSE ---
Pt reports feeling a bit woozy. Pt is sitting up in bed on his computer and getting ready to eat lunch. BG 98. Tele SR. HR 60's and bp 113/67. Pt agrees to try Meclizine for his vertigo symptoms.
--- NOTE | 2018-06-28 13:52 | PM.DS.1 ---
History of Present Illness Date Patient Seen: 06/27/18 Chief complaint: SYNCOPY Narrative: Written by Johnson MITCHELL: Mr. Diego Ibanez is a 67-year-old male patient who has a history of hypertension, non insulin-dependent diabetes, vertigo, COPD and chronic back pain who presents to [facility] ER for near syncopal episode earlier today. The patient has been a resident at [facility] and has recently undergone an ankle/foot fusion and was in [facility] for his 3rd postop visit with Dr. Rice. Following the visit the patient states he felt very weak, dizzy, nauseated and diaphoretic. Patient has a history of vertigo who reports episodes between 4 and 6 times per day however this was a much more involved occurrence prompting him to go to the ER for evaluation. The patient did not sustain a fall however he has indicates that he has fallen and is using a knee walker as he is nonweightbearing on his right leg which remains in a rigid splint. Patient is a somewhat marginal historian and information is augmented from the medical record. He denies neck or back pain and has had no chest pain. He does endorse recently feeling ill fevers and chills and laryngitis that have since resolved. He denies complaints of chest pain, palpitations or shortness of breath. He does complain of a productive cough indicating he will cough up a large amount of clear mucus. He does have a history in the medical record of COPD and has been smoking until 2 months ago. He reports no current abdominal pain, heartburn, nausea or vomiting. He reports no complaints of constipation or diarrhea. The patient describes lack of sensation below the waist related to lumbar spine disease along with by description appears to be neurogenic claudication as he describes walking and losing strength in his legs melting to the ground. He has had no loss of bowel or bladder control. At [facility] ER patient is found to be afebrile with heart rate of 67, blood pressure 126/65, respirations of 18 and saturation of 97% on room air. The patient has remarkable laboratory findings were a potassium of 5.3, had an anion gap of 13, BUN of 16 and creatinine of 0.88, LFTs within normal range. He did have a positive D-dimer at 0.56. He has a normal white count 6.6 with hemoglobin 13.7 and hematocrit of 14.6. His troponin T was less than 0.010. The patient did undergo a CT angio for rule out of pulmonary embolism with negative findings of embolism, lung consolidation or pleural effusions. His chest x-ray revealed no acute cardiopulmonary disease. He did have an EKG however the tracing is not present for review and found to have a sinus rhythm with a rate of 70 with prolonged QT interval, no ischemic changes as interpreted by the ER physician at [facility]. The patient is transferred to for further evaluation of near syncope, prolonged QT interval and hyperkalemia. Discharge Providers Date of admission: 06/26/18 21:34 Discharge Date: 06/28/18 Primary care physician: Jamie Becerra MD Consults: 06/27/18 00:43 Consult to Discharge Planning Routine Comment: Consult to Physical Therapy Evaluate & Treat Comment: s/p ankle/foot fusion, NWB RLE, vertigo, falls Physician Instructions: Evaluate and Treat 06/27/18 01:03 Consult to Respiratory Therapy Evaluate & Treat Comment: Physician Instructions: Evaluate and treat 06/27/18 01:31 Consult to Respiratory Therapy Evaluate & Treat Comment: COPD, ?asthma, smoker Physician Instructions: Evaluate and treat 06/27/18 15:06 Consult to Occupational Therapy Evaluate & Treat Comment: Vertigo Physician Instructions: Evaluate and treat Consult to Physical Therapy Evaluate & Treat Comment: Vertigo Physician Instructions: Evaluate and Treat Discharge provider: Angela Malik DO Summary Discharge Diagnosis: 1. Acute near-syncope, not evident on admission. Ongoing. 2. Vertigo, chronic and intermittent, present on admission. Ongoing. 3. Chronic obstructive pulmonary disease, chronic, active 4. Diabetes type 2, non-insulin dependent, controlled, present on admission. Stable. 5. Hypertension, chronic, present on admission. Stable. Hospital Course: 1. Acute near-syncopal episode, not evident on admission. Ongoing. -Asymptomatic upon arrival at [facility]. -Patient reports 4-6 episodes daily of symptomatic vertigo with dizziness weakness and nausea. Presenting symptoms were worse than normal with associated diaphoresis. -Evaluation at [facility] ER included a chest x-ray that was found to be unremarkable. CTA negative for PE. -EKG normal sinus rhythm with 434 ms. -Continued to monitor on telemetry. No ectopy. -Ordered orthostatic BP and was not orthostatic. -Continued PT evaluation and treatment. Patient is nonweightbearing on right leg due to recent ORIF. -Patient had no near syncopal or syncopal episodes during hospitalization and recommended neurology evaluation for vertigo as below. 2. Vertigo, chronic and intermittent, present on admission. Ongoing. -Continued meclizine 25 mg 3 times daily as needed. -Previously undergone Nain maneuver with no change in symptomatology. -Etiology of vertigo at this time is unknown. Recommended outpatient neurology evaluation. He has seen Neurosurgery but not Neurology in the past. 3. Chronic obstructive pulmonary disease, chronic, present on admission. -Does not represent an acute exacerbation. -Patient reportedly had desaturation with talking, however, per vital signs and staff has not been on oxygen and no recorded desaturations. Oxygen saturation goal 88-92%. -Continued DuoNeb ordered every 6 hours as needed while awake for wheezing. 4. Diabetes type 2, non-insulin dependent, controlled, present on admission. Stable. -Continued metformin 500 mg twice daily. -Continued check glucose ACHS and cover with low range sliding scale insulin. 5. Hypertension, chronic, present on admission. Stable. -Blood pressure well controlled. -Continued lisinopril 5 mg daily. Status at Discharge Overall status at discharge: patient is back to baseline Exam Vital Signs (past 8 hours): - 06/28/18 08:00 06/28/18 08:12 06/28/18 12:00 Temperature 98 F 97.7 F Pulse Rate 60 64 Respiratory Rate 16 16 Blood Pressure 106/60 106/60 113/67 Pulse Oximetry 97 98 Narrative Exam Narrative: General: Older gentleman sitting in bed and in no acute distress, well-developed, well-nourished, mildly anxious, appropriately interactive. HEENT: Normocephalic, atraumatic. External ears without defect. Pupils equal, round, and reactive to light. Anicteric sclerae, moist conjunctivae, and no lid lag. Poor dentition. Neck: Supple with full range of motion. No lymphadenopathy or thyromegaly. Cardiovascular: Regular rate and rhythm without murmurs, rubs, or gallops appreciated Pulmonary: Clear to auscultation bilaterally without crackles, wheezes, or rhonchi. Normal respiratory effort with no use of accessory muscles. Abdomen: Soft, bowel sounds present, nontender, nondistended. No hepatosplenomegaly or masses appreciated. Extremities: No clubbing, cyanosis, or edema. Right leg with boot in place. Skin: Normal temperature, turgor, and texture; no rash, ulcers, or subcutaneous nodules appreciated. Neurological: Cranial nerves grossly intact. No vertigo symptoms with head turning. Psychiatric: Mildly anxious mood and normal affect. Alert and oriented to person, place, and time. No nystagmus. Objective Labs Result Diagrams: 06/27/18 05:20 06/27/18 12:20 Discharge Plan Discharge Plan Patient Disposition: SNF Transfer to: [facility] Under care of provider: Dr. Alba Transportation: Facility vehicle I certify the postop hospital intermediate care is medically necessary on a continuing basis for any conditions for which he/ she received care during this hospitalization.: Yes The receiving facility has agreed to accept transfer and provide medical treatment.: Yes Discharge Med Rec/Prescriptions Prescriptions: Continued metformin [Glucophage] 500 MG tablet 500 mg PO BID Qty: 0 RF: 0 albuterol sulfate [Proventil HFA] 90 MCG/PUFF HFA aerosol inhaler 1 puff INH PRN PRN (Reason: Shortness Of Breath) Qty: 17 RF: 0 lisinopril 5 MG tablet 5 mg PO DAILY Qty: 0 RF: 0 acetaminophen 325 MG tablet 650 mg PO PRN PRN (Reason: Pain, Mild) Qty: 0 RF: 0 Maalox Maximum Strength 355 ML suspension 30 ml PO Q6HP PRN (Reason: Indigestion) Qty: 0 RF: 0 mupirocin 2 % ointment 1 applic Topical DIRECTED RF: 0 meclizine 25 mg tablet 25 mg PO TID PRN (Reason: Dizziness) RF: 0 tizanidine 2 mg tablet 2 mg PO Q8H PRN (Reason: Spasms) RF: 0 hydrocodone-acetaminophen 5-325 mg tablet 2 tab PO Q4H PRN (Reason: Pain, Severe) Qty: 30 RF: 0 diazepam 5 MG tablet 5 mg PO Q12HP PRN (Reason: Anxiety) Qty: 30 RF: 0 Discontinued zolpidem 5 MG tablet 5 mg PO HSP PRN (Reason: Sleep) Qty: 0 RF: 0 No Action zolpidem 5 MG tablet 5 mg PO BEDTIME RF: 0 Follow up/Referrals: Jamie Becerra MD [Primary Care Provider] - Discharge Health Status Brief summary of current health status: This is a 67-year-old gentleman with significant history of vertigo and presyncopal episodes. There is no cause identified for presyncopal episodes other than vertigo which was treated with his meclizine and is stable. Recommend Neurology evaluation outpatient. Patient also needs to be further evaluated by GI outpatient for esophageal thickening on CTA chest. Multidrug resistant organism: No MDRO Provider Discharge Instructions Diet: Carb-consistent/Diabetic, Low-fat, Low-sodium and Low-cholesterol Activity: Activity as tolerated with PT and assist device. Discharge Data Primary Care Provider: Jamie Becerra Attending Provider: Johnson Neal Admit Date/Time: 06/26/18 21:34 Discharges patient from system. Discharge Date/Time: 06/28/18 15:50 Quality VTE Deep Vein Thrombosis/Pulmonary Embolism Present on Admission: No
--- NOTE | 2018-06-28 14:57 | CM.DPC ---
DCP Cont: Faxed discharge referral to [facility] at fax # [phone]. Fax confirmation scanned in. Macrina Restrepo, [employer]
--- NOTE | 2018-06-28 15:00 | CM.DPNOTE ---
Reviewed chart. Pt discussed in multi-disciplinary rounds. Pt admitted from [facility] and plan is for him to return. Dr Malik placed DC order as pt medically stable today. Updated [facility], transportation scheduled for 1530. Pt remains aware and agreeable to DCP. RN notified of above. Macrina CM Specialist, coordinated details of this DC by faxing completed and signed med list, Rx, and DC Summary, no PASRR needed for this return to [facility]. P: DC back to [facility] this afternoon via [facility]. KAL Romero
--- NOTE | 2018-06-28 15:30 | PC.NURSE ---
Report called to Darya RATLIFF at [facility] who will be receiving Pt. Report given - no further questions. Pt ready for discharge back to [facility] when [facility] transport is ready to pick him up. Belongings all packed up, HL removed. Pt's personal w/c in room to go back with Pt.
--- NOTE | 2018-06-28 16:04 | PC.NURSE ---
Discharge note: Patient discharge to [facility] via WC by [facility] staff, accompanied by Becky RATLIFF at 1550. Patient awake, alert, and pleasant. Discharge packet with [facility] staff. Report called to [facility] receiving staff by Roberta RATLIFF.
== END 2018-06-28 15:50 ==
PROVIDERS: Nurse Practitioner Family; Admitting Provider Nurse Practitioner Adult Health; PCP Internal Medicine; Visit Provider Nurse Practitioner Adult Health
DX: R55 Syncope and collapse (principal); R42 Dizziness and giddiness; E78.5 Hyperlipidemia, unspecified; I10 Essential (primary) hypertension; J45.909 Unspecified asthma, uncomplicated; F17.210 Nicotine dependence, cigarettes, uncomplicated; J44.9 Chronic obstructive pulmonary disease, unspecified; E11.9 Type 2 diabetes mellitus without complications; Z79.84 Long term (current) use of oral hypoglycemic drugs; G89.29 Other chronic pain; M54.9 Dorsalgia, unspecified
CPT/HCPCS: 36415; 80048; 81001; 82962; 83036; 83735; 85025; 93005; 94762; 97162; G0378; G0379; J1650

== ENCOUNTER 2018-07-04 15:46 | Emergency (ER) | payer MEDICARE, MEDICAID, SELFPAY ==
[2018-06-27 00:35] VITALS: BMI 31.4
[2018-07-04 15:50] VITALS: BP 138/76; PULSE 102; RESP 18; TEMP 36.9; O2SAT 96
--- NOTE | 2018-07-04 18:42 | PC.NURSE ---
Swelling and small area of redness to incision on right ankle.
--- NOTE | 2018-07-04 18:43 | PC.NURSE ---
Patient reports he hasn't had his meds for several days.
--- NOTE | 2018-07-04 19:21 | CM.SWNOTE ---
Patient is a 67 year old male who was admitted to the ER today 07/04/18 for Extremity Problem. Patient was recently admitted to [facility] from [facility] rehab for potassium levels and dizziness and was able to be discharged back to [facility] for ongoing rehab. [facility] confirmed that pt had been admitted to their facility on 05/29/18 from [facility] after an ankle surgery. BRITTANY called Florence, raymond at [facility], who states that the patient had been on a contract with them to no longer use recording devices while on their premises as pt was found multiple times recording staff and residents without permission. When staff discussed this break in contract with the pt and asked to remove his web cam pt decided to leave AMA from [facility] facility. [facility] discussed with pt that this was not a safe d/c but pt decided to leave anyways. [facility] administrators state pt is not welcome back at their facility. Although Florence confirmed that pt still has a qualifying Medicare stay for SNF rehab and does not need to be admitted to the hospital to qualify. BRITTANY met bedside with pt in the ER and pt mostly confirmed the above information and states that he left via his w/c from [facility] and called Kamlesh Martines who took the pt to the vehicle storage area on [address] in [place] where his RV and other personal belongings are being held but without any power or running water. Pt states he stayed in his RV for about a day or two and had contacted his HCS CM Sara Lake who is aware of pt's situation and was discussing getting the pt into another SNF for ongoing rehab due to his non-weight baring status and medical needs post surgery but was unable to secure SNF before the end of her shift today. Pt now in the ER and being assessed to determine if any medical need to keep him in the hospital but pt likely medically stable but needing placement other than his RV with no running water or electricity. Pt states he's agreeable to another SNF and [facility]. BRITTANY called Sara Lake, pt's Manager Photo, at [phone] and had to leave a msg as after hours and requested her to call BRITTANY back in the morning with updates and to check in if pt still in the ER. BRITTANY called [facility] and their facility currently has the Flu and are quarantined and earliest they can admit new patients will be in two days on . SW called and had to leave msgs on admission phones due to after hours and faxed clinicals for review with SW call back number to: [facility] Bessie SOTO updated pt on above information and updated MD and RN. SW left msg for Acute Care SW to follow up in the morning regarding pt placement to reduce pt's risk of social admit. Plan: SW to follow up in the morning on SNF placement at previously faxed SNFs and coordinate with Diego Lake from [facility]. Patient already has a qualifying Medicare stay for SNF coverage, just need to find accepting SNF for rehab. KAL Engel
--- NOTE | 2018-07-04 20:45 | ED.EXTPRO ---
HPI - Extremity Problem <Edmundo Betancur DO - Last Filed: 07/07/18 09:13> General Chief complaint: Extremity Problem,Nontraumatic Stated complaint: Follow up Fx ankle/foot Time Seen by Provider: 07/04/18 18:00 Source: patient and EMS Mode of arrival: EMS Limitations: no limitations History of Present Illness HPI Narrative: 67-year-old male smoker with history of hypertension and chronic foot problems with the recent surgery presents by EMS for evaluation. He had been at [facility] but [place] [facility] [place] Tuesday when they would not give him his computer. 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 He decided to leave when they took his computer and was told by a organization development consultant to present to the emergency department today for evaluation by social Work, possible admission and assistance with placement into another facility. He denies any new complaints whatsoever. He has no chest pain or shortness of breath. He is not dizzy or weak or lightheaded. He denies any falls or injuries to his foot. Patient has had multiple surgeries on his foot and was seen and evaluated in the emergency department at [facility] for syncopal episode but transferred here for admission as they had no beds. He was discharged from our facility to the SNF Exacerbating factors: range of motion Related Data Home Medications Medication Instructions Recorded Confirmed albuterol sulfate [Proventil HFA] 1 puff INH PRN PRN #17 gm 10/13/11 07/05/18 metformin [Glucophage] 500 mg PO BID #0 10/13/11 07/04/18 lisinopril 5 mg PO DAILY #0 08/26/16 07/04/18 Maalox Maximum Strength 30 ml PO Q6HP PRN #0 07/05/17 06/27/18 acetaminophen 650 mg PO PRN PRN #0 07/05/17 07/05/18 meclizine 25 mg PO TID PRN 08/16/17 07/04/18 mupirocin 1 applic TOPICAL DIRECTED 08/19/17 06/27/18 tizanidine 2 mg PO Q8H PRN 06/27/18 07/04/18 zolpidem 5 mg PO BEDTIME 07/04/18 07/04/18 dextromethorphan-guaifenesin 10 ml PO Q6HR PRN 07/05/18 07/05/18 [Val-Tussin DM] diazepam 5 mg PO DAILY 07/05/18 07/05/18 lidocaine 2 patch TOPICAL BID 07/05/18 07/05/18 lisinopril 2.5 mg PO DAILY 07/05/18 07/05/18 oxycodone [OxyContin] 15 mg PO Q12H 07/05/18 07/05/18 tizanidine 2 mg PO Q8H PRN 07/05/18 07/05/18 zolpidem 5 mg PO BEDTIME PRN 07/05/18 07/05/18 Previous Rx's Medication Instructions Recorded hydrocodone-acetaminophen 2 tab PO Q4H PRN #30 tab 06/28/18 hydrocodone-acetaminophen [Wassaic] 1 tab PO Q4-6H PRN #14 tab 07/05/18 Allergies Allergy/AdvReac Type Severity Reaction Status Date / Time No Known Drug Allergies Allergy Unknown Verified 08/18/17 22:06 [NO KNOWN DRUG ALLERGIES] NSAIDS (Non-Steroidal AdvReac Intermediate BLEEDING Verified 08/18/17 22:06 Anti-Inflamma ULCERS celecoxib AdvReac Unknown Verified 08/18/17 22:06 diclofenac AdvReac Unknown Verified 08/18/17 22:06 oxycodone AdvReac Unknown Verified 08/18/17 22:06 prednisone AdvReac Unknown Verified 08/18/17 22:06 Review of Systems <Edmundo Betancur DO - Last Filed: 07/07/18 09:13> Constitutional Denies chills, Denies fever(s), Denies lethargy and Denies weakness Eyes Denies change in vision, Denies eye discharge, Denies irritation and Denies loss of vision ENT Ears, Nose, Mouth, and Throat: Denies change in voice, Denies neck pain and Denies sore throat Cardiovascular Denies chest pain, Denies irregular heart rhythm, Denies lightheadedness, Denies palpitations, Denies dyspnea, Denies dyspnea on exertion and Denies orthopnea Respiratory Denies cough, Denies dyspnea, Denies dyspnea on exertion and Denies wheezing Gastrointestinal Gastrointestinal: Denies abdominal pain, Denies change in bowel habits, Denies diarrhea, Denies nausea and Denies vomiting Genitourinary Denies hematuria, Denies flank pain, Denies urinary incontinence and Denies urinary urgency Musculoskeletal Reports joint swelling and Denies neck pain Integumentary/Breasts Denies pruritus, Denies erythema, Denies rash and Denies wounds Neurologic Denies confusion, Denies loss of vision and Denies weakness Psychiatric Denies anxiety, Denies confusion, Denies depression, Denies homicidal ideation and Denies suicidal ideation Endocrine Denies palpitations Hematologic/Lymphatic Denies easy bruising Allergic/Immunologic Denies wheezing PFSH <Edmundo Betancur DO - Last Filed: 07/07/18 09:13> Medical History Chronic low back pain (Chronic) Asthma (Acute) COPD (chronic obstructive pulmonary disease) (Acute) Chronic back pain (Acute) Diabetes (Acute) Duodenal ulcer (Acute) History of DVT (deep vein thrombosis) (Acute) History of MRSA infection (Acute) History of cellulitis (Acute) Hyperlipidemia (Acute) Hypertension (Acute) Lumbar stenosis with neurogenic claudication (Acute) Surgical History History of arthroplasty of right ankle (Acute) History of ankle fusion (Acute) History of gastric bypass (Acute) History of hemorrhoidectomy (Acute) S/P cervical spinal fusion (Acute) Family History (Updated 06/27/18 @ 01:21 by STEPHEN Moseley) Father Leukemia Mother Brain cancer Sister Heart attack Social History household members: none Smoking Status: Current every day smoker Family History Father Leukemia Mother Brain cancer Sister Heart attack Social History household members: none Smoking Status: Current every day smoker Exam <Edmundo Betancur DO - Last Filed: 07/07/18 09:13> Narrative Exam Narrative: GENERAL: 67-year-old male resting comfortably in no obvious or significant distress HEAD: Atraumatic. Normocephalic. No temporal or scalp tenderness. EYES: Pupils equal round and reactive. Extraocular motions intact. No scleral icterus. No injection or drainage. ENT: Nose without bleeding, purulent drainage or septal hematoma. Throat without erythema, tonsillar hypertrophy or exudate. Uvula midline. Airway patent. NECK: Trachea midline. No JVD or lymphadenopathy. Supple, nontender, no meningeal signs. CARDIOVASCULAR: Regular rate and rhythm without murmurs, gallops, or rubs. RESPIRATORY: Clear to auscultation. Breath sounds equal bilaterally. No wheezes, rales, or rhonchi. GASTROINTESTINAL: Abdomen soft, non-tender, nondistended. No hepato-splenomegaly, or palpable masses. No guarding. EXTREMITIES: foot in post op shoe BACK: Nontender without deformity or crepitance. No flank tenderness. NEURO: AOx3. SKIN: No rash or erythema. Initial Vital Signs Initial Vital Signs: Vital Signs Temperature 98.5 F 07/04/18 15:50 Pulse Rate 102 H 07/04/18 15:50 Respiratory Rate 18 07/04/18 15:50 Blood Pressure 138/76 07/04/18 15:50 Pulse Oximetry 96 07/04/18 15:50 <Richard Hearn DO - Last Filed: 07/05/18 14:59> Initial Vital Signs Initial Vital Signs: Vital Signs Temperature 98.5 F 07/04/18 15:50 Pulse Rate 102 H 07/04/18 15:50 Respiratory Rate 18 07/04/18 15:50 Blood Pressure 138/76 07/04/18 15:50 Pulse Oximetry 96 07/04/18 15:50 Course <Edmundo Betancur DO - Last Filed: 07/07/18 09:13> Course Narrative: Patient seen and evaluated by social Work in the emergency department. They have made multiple calls as noted in their chart. There is no ability to place this patient tonight. They will re-evaluate in the morning, in an attempt to avoid a social admit Orders Ordered: Discontinued Medications Hydrocodone Bitart/Acetaminophen (Wassaic 5/325) 2 tab PO NOW ONE Stop: 07/05/18 06:28 Last Admin: 07/05/18 06:45 Dose: 2 tab Lisinopril (Zestril) 5 mg PO NOW ONE Stop: 07/05/18 06:28 Last Admin: 07/05/18 06:51 Dose: 5 mg Metformin HCl (Glucophage) 500 mg PO 0800 CHANTE Last Admin: 07/05/18 07:57 Dose: 500 mg Admin: 04/10/19 06:49 Dose: 500 mg Reevaluation(s) Reevaluation #1: patient continues to rest comfortably Vital Signs - 8 hr 07/05/18 10:01 Temperature 99 F Pulse Rate 88 Respiratory Rate 18 Blood Pressure [Left Arm] 144/74 H Pulse Oximetry 98 <Richard Hearn DO - Last Filed: 07/05/18 14:59> Orders Ordered: Discontinued Medications Hydrocodone Bitart/Acetaminophen (Wassaic 5/325) 2 tab PO NOW ONE Stop: 07/05/18 06:28 Last Admin: 07/05/18 06:45 Dose: 2 tab Lisinopril (Zestril) 5 mg PO NOW ONE Stop: 07/05/18 06:28 Last Admin: 07/05/18 06:51 Dose: 5 mg Metformin HCl (Glucophage) 500 mg PO 0800 CHANTE Last Admin: 07/05/18 07:57 Dose: 500 mg Admin: 07/05/18 06:49 Dose: 500 mg Vital Signs - 8 hr 07/05/18 10:01 Temperature 99 F Pulse Rate 88 Respiratory Rate 18 Blood Pressure [Left Arm] 144/74 H Pulse Oximetry 98 MDM - Extremity (Nontraumatic) <Edmundo Betancur DO - Last Filed: 07/07/18 09:13> Lab Data Result diagrams: 07/04/18 22:56 07/04/18 22:56 Lab Results 07/04/18 07/04/18 Range/Units 22:56 22:56 WBC 6.8 (4.5-11.0) X10^3/uL RBC 4.11 L (4.5-5.9) X10^6/uL Hgb 14.5 (13.5-17.5) g/dL Hct 41.2 (41-53) % MCV 100.4 H (80-100) fL MCH 35.4 H (26-34) PG MCHC 35.3 (30-36) % RDW 12.6 (11.6-14.8) % Plt Count 241 (150-400) X10^3/uL Neut % (Auto) 58.6 (50-75) % Lymph % (Auto) 28.7 (25-40) % Spalding % (Auto) 10.1 (3-14) % Eos % (Auto) 1.9 L (2-4) % Baso % (Auto) 0.7 (0-2) % Neut # (Auto) 4000 (7796-6506) /uL Lymph # (Auto) 2000 (1468-2319) /uL Spalding # (Auto) 700 (0-900) /uL Eos # (Auto) 100 (0-450) /uL Baso # (Auto) 0 (0-100) /uL Sodium 139 (137-145) mmol/L Potassium 4.0 (3.4-5.1) mmol/L Chloride 105 (98-107) mmol/L Carbon Dioxide 24 (22-32) mmol/L BUN 21 H (9-20) mg/dL Creatinine 0.80 (0.66-1.25) mg/dL Estimated GFR > 60.0 (>60) mL/min BUN/Creatinine Ratio 26.3 H (6-22) Glucose 120 H (80-110) mg/dL Calcium 9.6 (8.4-10.2) mg/dL <Richard Hearn, - Last Filed: 07/05/18 14:59> Lab Data Lab Results 07/04/18 07/04/18 Range/Units 22:56 22:56 WBC 6.8 (4.5-11.0) X10^3/uL RBC 4.11 L (4.5-5.9) X10^6/uL Hgb 14.5 (13.5-17.5) g/dL Hct 41.2 (41-53) % MCV 100.4 H (80-100) fL MCH 35.4 H (26-34) PG MCHC 35.3 (30-36) % RDW 12.6 (11.6-14.8) % Plt Count 241 (150-400) X10^3/uL Neut % (Auto) 58.6 (50-75) % Lymph % (Auto) 28.7 (25-40) % Spalding % (Auto) 10.1 (3-14) % Eos % (Auto) 1.9 L (2-4) % Baso % (Auto) 0.7 (0-2) % Neut # (Auto) 4000 (5566-0183) /uL Lymph # (Auto) 2000 (6074-1173) /uL Spalding # (Auto) 700 (0-900) /uL Eos # (Auto) 100 (0-450) /uL Baso # (Auto) 0 (0-100) /uL Sodium 139 (137-145) mmol/L Potassium 4.0 (3.4-5.1) mmol/L Chloride 105 (98-107) mmol/L Carbon Dioxide 24 (22-32) mmol/L BUN 21 H (9-20) mg/dL Creatinine 0.80 (0.66-1.25) mg/dL Estimated GFR > 60.0 (>60) mL/min BUN/Creatinine Ratio 26.3 H (6-22) Glucose 120 H (80-110) mg/dL Calcium 9.6 (8.4-10.2) mg/dL MDM Narrative Medical decision making narrative: Dr. Hearn: Received her over from Night provider. Patient has been stable throughout his stay here in the emergency department. He received 1 dose of pain medication. Social Work has been hard work attempting to find patient placement. They did find him placement at [facility]. Patient is stable for transport. Discharge Plan Departure Patient Disposition: Home Clinical Impression: History of arthroplasty of right ankle, Encounter for medication refill Discharge Date/Time: 07/05/18 17:22 Interventions: ED Discharge Assessment Last Done: 07/05/18 17:21 Activity Restrictions/Additional Instructions: Continue all of your medications as directed. Please follow all activity restrictions given to you by your orthopedic surgeon. Contact your primary care doctor for follow-up. Prescriptions: New hydrocodone-acetaminophen [Wassaic] 5-325 mg tablet 1 tab PO Q4-6H PRN (Reason: pain) Qty: 14 RF: 0 No Action metformin [Glucophage] 500 MG tablet 500 mg PO BID Qty: 0 RF: 0 albuterol sulfate [Proventil HFA] 90 MCG/PUFF HFA aerosol inhaler 1 puff INH PRN PRN (Reason: Shortness Of Breath) Qty: 17 RF: 0 lisinopril 5 MG tablet 5 mg PO DAILY Qty: 0 RF: 0 acetaminophen 325 MG tablet 650 mg PO PRN PRN (Reason: Pain, Mild) Qty: 0 RF: 0 Maalox Maximum Strength 355 ML suspension 30 ml PO Q6HP PRN (Reason: Indigestion) Qty: 0 RF: 0 mupirocin 2 % ointment 1 applic Topical DIRECTED RF: 0 meclizine 25 mg tablet 25 mg PO TID PRN (Reason: Dizziness) RF: 0 tizanidine 2 mg tablet 2 mg PO Q8H PRN (Reason: Spasms) RF: 0 hydrocodone-acetaminophen 5-325 mg tablet 2 tab PO Q4H PRN (Reason: Pain, Severe) Qty: 30 RF: 0 zolpidem 5 MG tablet 5 mg PO BEDTIME RF: 0 dextromethorphan-guaifenesin [Val-Tussin DM] 10-100 mg/5 mL Syrup 10 ml PO Q6HR PRN (Reason: Cough) RF: 0 zolpidem 5 mg Tablet 5 mg PO BEDTIME PRN (Reason: Sleep) RF: 0 lisinopril 2.5 mg Tablet 2.5 mg PO DAILY RF: 0 oxycodone [OxyContin] 15 mg Tablet,Oral Only,Ext.Rel.12 Hr 15 mg PO Q12H RF: 0 lidocaine 4 % Adhesive Patch,Medicated 2 patch TOPICAL BID RF: 0 tizanidine 2 mg Tablet 2 mg PO Q8H PRN (Reason: Muscle Spasm) RF: 0 diazepam 5 MG tablet 5 mg PO DAILY RF: 0 Referrals: Jamie Becerra MD [Primary Care Provider] -
[2018-07-04 22:07] VITALS: BP 116/81; PULSE 89; RESP 16; O2SAT 100
[2018-07-04 23:02] LABS: Add Manual Diff / Slide Review NO; Basophils Absolute Auto 0 /uL (0-100); Basophils Percent Auto 0.7 % (0-2); Eosinophils Absolute Auto 100 /uL (0-450); Eosinophils Percent Auto 1.9 % (2-4); Hematocrit 41.2 % (41-53); Hemoglobin 14.5 g/dL (13.5-17.5); Lymphocytes Absolute Auto 2000 /uL (1100-4500); Lymphocytes Percent Auto 28.7 % (25-40); Mean Corpuscular HGB Conc 35.3 % (30-36); Mean Corpuscular Hemoglobin 35.4 PG (26-34); Mean Corpuscular Volume 100.4 fL (80-100); Monocytes Absolute Auto 700 /uL (0-900); Monocytes Percent Auto 10.1 % (3-14); Neutrophils Absolute Auto 4000 /uL (1500-7000); Neutrophils Percent Auto 58.6 % (50-75); Platelet Count 241 X10^3/uL (150-400); Red Blood Cell Count 4.11 X10^6/uL (4.5-5.9); Red Cell Distribution Width 12.6 % (11.6-14.8); White Blood Cell Count 6.8 X10^3/uL (4.5-11.0)
[2018-07-04 23:14] LABS: BUN Creatinine Ratio 26.3 (6-22); Blood Urea Nitrogen 21 mg/dL (9-20); Calcium 9.6 mg/dL (8.4-10.2); Carbon Dioxide 24 mmol/L (22-32); Chloride 105 mmol/L (98-107); Estimated Glomerular Filt Rate > 60.0 mL/min (>60); Glucose 120 mg/dL (80-110); HEMOLYSIS 25 (0-50); Sodium 139 mmol/L (137-145)
[2018-07-04 23:30] VITALS: BP 123/68
[2018-07-05] VITALS (7 sets, daily range): BP systolic 99–144; BP diastolic 57–84; PULSE 78–102; RESP 16–18; TEMP 37.2–37.3; O2SAT 97–99
--- NOTE | 2018-07-05 03:32 | ED_ITS ---
HPI - Extremity Problem <Edmundo Betancur DO - Last Filed: 07/07/18 09:13> General Chief complaint: Extremity Problem,Nontraumatic Stated complaint: Follow up Fx ankle/foot Time Seen by Provider: 07/04/18 18:00 Source: patient and EMS Mode of arrival: EMS Limitations: no limitations History of Present Illness HPI Narrative: 67-year-old male smoker with history of hypertension and chronic foot problems with the recent surgery presents by EMS for evaluation. He had been at [facility] but left [facility] on Tuesday when they would not give him his computer. 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 He decided to leave when they took his computer and was told by a technology applications consultant to present to the emergency department today for evaluation by social Work, possible admission and assistance with placement into another facility. He denies any new complaints whatsoever. He has no chest pain or shortness of breath. He is not dizzy or weak or lightheaded. He denies any falls or injuries to his foot. Patient has had multiple surgeries on his foot and was seen and evaluated in the emergency department at [facility] for syncopal episode but transferred here for admission as they had no beds. He was discharged from our facility to the SNF Exacerbating factors: range of motion Related Data Home Medications Medication Instructions Recorded Confirmed albuterol sulfate [Proventil HFA] 1 puff INH PRN PRN #17 gm 10/13/11 07/05/18 metformin [Glucophage] 500 mg PO BID #0 10/13/11 07/04/18 lisinopril 5 mg PO DAILY #0 08/26/16 07/04/18 Maalox Maximum Strength 30 ml PO Q6HP PRN #0 07/05/17 06/27/18 acetaminophen 650 mg PO PRN PRN #0 07/05/17 07/05/18 meclizine 25 mg PO TID PRN 08/16/17 07/04/18 mupirocin 1 applic TOPICAL DIRECTED 08/19/17 06/27/18 tizanidine 2 mg PO Q8H PRN 06/27/18 07/04/18 zolpidem 5 mg PO BEDTIME 07/04/18 07/04/18 dextromethorphan-guaifenesin 10 ml PO Q6HR PRN 07/05/18 07/05/18 [Val-Tussin DM] diazepam 5 mg PO DAILY 07/05/18 07/05/18 lidocaine 2 patch TOPICAL BID 07/05/18 07/05/18 lisinopril 2.5 mg PO DAILY 07/05/18 07/05/18 oxycodone [OxyContin] 15 mg PO Q12H 07/05/18 07/05/18 tizanidine 2 mg PO Q8H PRN 07/05/18 07/05/18 zolpidem 5 mg PO BEDTIME PRN 07/05/18 07/05/18 Previous Rx's Medication Instructions Recorded hydrocodone-acetaminophen 2 tab PO Q4H PRN #30 tab 06/28/18 hydrocodone-acetaminophen [Delphia] 1 tab PO Q4-6H PRN #14 tab 07/05/18 Allergies Allergy/AdvReac Type Severity Reaction Status Date / Time No Known Drug Allergies Allergy Unknown Verified 08/18/17 22:06 [NO KNOWN DRUG ALLERGIES] NSAIDS (Non-Steroidal AdvReac Intermediate BLEEDING Verified 08/18/17 22:06 Anti-Inflamma ULCERS celecoxib AdvReac Unknown Verified 08/18/17 22:06 diclofenac AdvReac Unknown Verified 08/18/17 22:06 oxycodone AdvReac Unknown Verified 08/18/17 22:06 prednisone AdvReac Unknown Verified 08/18/17 22:06 Review of Systems <Edmundo Betancur DO - Last Filed: 07/07/18 09:13> Constitutional Denies chills, Denies fever(s), Denies lethargy and Denies weakness Eyes Denies change in vision, Denies eye discharge, Denies irritation and Denies loss of vision ENT Ears, Nose, Mouth, and Throat: Denies change in voice, Denies neck pain and Denies sore throat Cardiovascular Denies chest pain, Denies irregular heart rhythm, Denies lightheadedness, Denies palpitations, Denies dyspnea, Denies dyspnea on exertion and Denies orthopnea Respiratory Denies cough, Denies dyspnea, Denies dyspnea on exertion and Denies wheezing Gastrointestinal Gastrointestinal: Denies abdominal pain, Denies change in bowel habits, Denies diarrhea, Denies nausea and Denies vomiting Genitourinary Denies hematuria, Denies flank pain, Denies urinary incontinence and Denies urinary urgency Musculoskeletal Reports joint swelling and Denies neck pain Integumentary/Breasts Denies pruritus, Denies erythema, Denies rash and Denies wounds Neurologic Denies confusion, Denies loss of vision and Denies weakness Psychiatric Denies anxiety, Denies confusion, Denies depression, Denies homicidal ideation and Denies suicidal ideation Endocrine Denies palpitations Hematologic/Lymphatic Denies easy bruising Allergic/Immunologic Denies wheezing PFSH <Edmundo Betancur DO - Last Filed: 07/07/18 09:13> Medical History Chronic low back pain (Chronic) Asthma (Acute) COPD (chronic obstructive pulmonary disease) (Acute) Chronic back pain (Acute) Diabetes (Acute) Duodenal ulcer (Acute) History of DVT (deep vein thrombosis) (Acute) History of MRSA infection (Acute) History of cellulitis (Acute) Hyperlipidemia (Acute) Hypertension (Acute) Lumbar stenosis with neurogenic claudication (Acute) Surgical History History of arthroplasty of right ankle (Acute) History of ankle fusion (Acute) History of gastric bypass (Acute) History of hemorrhoidectomy (Acute) S/P cervical spinal fusion (Acute) Family History (Updated 06/27/18 @ 01:21 by STEPHEN Moseley) Father Leukemia Mother Brain cancer Sister Heart attack Social History household members: none Smoking Status: Current every day smoker Family History Father Leukemia Mother Brain cancer Sister Heart attack Social History household members: none Smoking Status: Current every day smoker Exam <Edmundo Betancur DO - Last Filed: 07/07/18 09:13> Narrative Exam Narrative: GENERAL: 67-year-old male resting comfortably in no obvious or significant distress HEAD: Atraumatic. Normocephalic. No temporal or scalp tenderness. EYES: Pupils equal round and reactive. Extraocular motions intact. No scleral icterus. No injection or drainage. ENT: Nose without bleeding, purulent drainage or septal hematoma. Throat without erythema, tonsillar hypertrophy or exudate. Uvula midline. Airway patent. NECK: Trachea midline. No JVD or lymphadenopathy. Supple, nontender, no meningeal signs. CARDIOVASCULAR: Regular rate and rhythm without murmurs, gallops, or rubs. RESPIRATORY: Clear to auscultation. Breath sounds equal bilaterally. No wheezes, rales, or rhonchi. GASTROINTESTINAL: Abdomen soft, non-tender, nondistended. No hepato- splenomegaly, or palpable masses. No guarding. EXTREMITIES: foot in post op shoe BACK: Nontender without deformity or crepitance. No flank tenderness. NEURO: AOx3. SKIN: No rash or erythema. Initial Vital Signs Initial Vital Signs: Vital Signs Temperature 98.5 F 07/04/18 15:50 Pulse Rate 102 H 07/04/18 15:50 Respiratory Rate 18 07/04/18 15:50 Blood Pressure 138/76 07/04/18 15:50 Pulse Oximetry 96 07/04/18 15:50 <Richard Hearn DO - Last Filed: 07/05/18 14:59> Initial Vital Signs Initial Vital Signs: Vital Signs Temperature 98.5 F 07/04/18 15:50 Pulse Rate 102 H 07/04/18 15:50 Respiratory Rate 18 07/04/18 15:50 Blood Pressure 138/76 07/04/18 15:50 Pulse Oximetry 96 07/04/18 15:50 Course <Edmundo Betancur DO - Last Filed: 07/07/18 09:13> Course Narrative: Patient seen and evaluated by social Work in the emergency department. They have made multiple calls as noted in their chart. There is no ability to place this patient tonight. They will re-evaluate in the morning, in an attempt to avoid a social admit Orders Ordered: Discontinued Medications Hydrocodone Bitart/Acetaminophen (Delphia 5/325) 2 tab PO NOW ONE Stop: 07/05/18 06:28 Last Admin: 07/05/18 06:45 Dose: 2 tab Lisinopril (Zestril) 5 mg PO NOW ONE Stop: 07/05/18 06:28 Last Admin: 07/05/18 06:51 Dose: 5 mg Metformin HCl (Glucophage) 500 mg PO 0800 CHANTE Last Admin: 07/05/18 07:57 Dose: 500 mg Admin: 04/10/19 06:49 Dose: 500 mg Reevaluation(s) Reevaluation #1: patient continues to rest comfortably Vital Signs - 8 hr 07/05/18 10:01 Temperature 99 F Pulse Rate 88 Respiratory Rate 18 Blood Pressure [Left Arm] 144/74 H Pulse Oximetry 98 <Richard Hearn DO - Last Filed: 07/05/18 14:59> Orders Ordered: Discontinued Medications Hydrocodone Bitart/Acetaminophen (Delphia 5/325) 2 tab PO NOW ONE Stop: 07/05/18 06:28 Last Admin: 07/05/18 06:45 Dose: 2 tab Lisinopril (Zestril) 5 mg PO NOW ONE Stop: 07/05/18 06:28 Last Admin: 07/05/18 06:51 Dose: 5 mg Metformin HCl (Glucophage) 500 mg PO 0800 CHANTE Last Admin: 07/05/18 07:57 Dose: 500 mg Admin: 07/05/18 06:49 Dose: 500 mg Vital Signs - 8 hr 07/05/18 10:01 Temperature 99 F Pulse Rate 88 Respiratory Rate 18 Blood Pressure [Left Arm] 144/74 H Pulse Oximetry 98 MDM - Extremity (Nontraumatic) <Edmundo Betancur DO - Last Filed: 07/07/18 09:13> Lab Data Result diagrams: 07/04/18 22:56 07/04/18 22:56 Lab Results 07/04/18 07/04/18 Range/Units 22:56 22:56 WBC 6.8 (4.5-11.0) X10^3/uL RBC 4.11 L (4.5-5.9) X10^6/uL Hgb 14.5 (13.5-17.5) g/dL Hct 41.2 (41-53) % MCV 100.4 H (80-100) fL MCH 35.4 H (26-34) PG MCHC 35.3 (30-36) % RDW 12.6 (11.6-14.8) % Plt Count 241 (150-400) X10^3/uL Neut % (Auto) 58.6 (50-75) % Lymph % (Auto) 28.7 (25-40) % Vermillion % (Auto) 10.1 (3-14) % Eos % (Auto) 1.9 L (2-4) % Baso % (Auto) 0.7 (0-2) % Neut # (Auto) 4000 (0644-1982) /uL Lymph # (Auto) 2000 (7019-1610) /uL [place] # (Auto) 700 (0-900) /uL Eos # (Auto) 100 (0-450) /uL Baso # (Auto) 0 (0-100) /uL Sodium 139 (137-145) mmol/L Potassium 4.0 (3.4-5.1) mmol/L Chloride 105 (98-107) mmol/L Carbon Dioxide 24 (22-32) mmol/L BUN 21 H (9-20) mg/dL Creatinine 0.80 (0.66-1.25) mg/dL Estimated GFR > 60.0 (>60) mL/min BUN/Creatinine Ratio 26.3 H (6-22) Glucose 120 H (80-110) mg/dL Calcium 9.6 (8.4-10.2) mg/dL <Richard Hearn, - Last Filed: 07/05/18 14:59> Lab Data Lab Results 07/04/18 07/04/18 Range/Units 22:56 22:56 WBC 6.8 (4.5-11.0) X10^3/uL RBC 4.11 L (4.5-5.9) X10^6/uL Hgb 14.5 (13.5-17.5) g/dL Hct 41.2 (41-53) % MCV 100.4 H (80-100) fL MCH 35.4 H (26-34) PG MCHC 35.3 (30-36) % RDW 12.6 (11.6-14.8) % Plt Count 241 (150-400) X10^3/uL Neut % (Auto) 58.6 (50-75) % Lymph % (Auto) 28.7 (25-40) % Vermillion % (Auto) 10.1 (3-14) % Eos % (Auto) 1.9 L (2-4) % Baso % (Auto) 0.7 (0-2) % Neut # (Auto) 4000 (4741-8348) /uL Lymph # (Auto) 2000 (1480-6733) /uL Vermillion # (Auto) 700 (0-900) /uL Eos # (Auto) 100 (0-450) /uL Baso # (Auto) 0 (0-100) /uL Sodium 139 (137-145) mmol/L Potassium 4.0 (3.4-5.1) mmol/L Chloride 105 (98-107) mmol/L Carbon Dioxide 24 (22-32) mmol/L BUN 21 H (9-20) mg/dL Creatinine 0.80 (0.66-1.25) mg/dL Estimated GFR > 60.0 (>60) mL/min BUN/Creatinine Ratio 26.3 H (6-22) Glucose 120 H (80-110) mg/dL Calcium 9.6 (8.4-10.2) mg/dL MDM Narrative Medical decision making narrative: Dr. Hearn: Received her over from Night provider. Patient has been stable throughout his stay here in the emergency department. He received 1 dose of pain medication. Social Work has been hard work attempting to find patient placement. They did find him placement at [facility]. Patient is stable for transport. Discharge Plan Departure Patient Disposition: Home Clinical Impression: History of arthroplasty of right ankle, Encounter for medication refill Discharge Date/Time: 07/05/18 17:22 Interventions: ED Discharge Assessment Last Done: 07/05/18 17:21 Activity Restrictions/Additional Instructions: Continue all of your medications as directed. Please follow all activity restrictions given to you by your orthopedic surgeon. Contact your primary care doctor for follow-up. Prescriptions: New hydrocodone-acetaminophen [Delphia] 5-325 mg tablet 1 tab PO Q4-6H PRN (Reason: pain) Qty: 14 RF: 0 No Action metformin [Glucophage] 500 MG tablet 500 mg PO BID Qty: 0 RF: 0 albuterol sulfate [Proventil HFA] 90 MCG/PUFF HFA aerosol inhaler 1 puff INH PRN PRN (Reason: Shortness Of Breath) Qty: 17 RF: 0 lisinopril 5 MG tablet 5 mg PO DAILY Qty: 0 RF: 0 acetaminophen 325 MG tablet 650 mg PO PRN PRN (Reason: Pain, Mild) Qty: 0 RF: 0 Maalox Maximum Strength 355 ML suspension 30 ml PO Q6HP PRN (Reason: Indigestion) Qty: 0 RF: 0 mupirocin 2 % ointment 1 applic Topical DIRECTED RF: 0 meclizine 25 mg tablet 25 mg PO TID PRN (Reason: Dizziness) RF: 0 tizanidine 2 mg tablet 2 mg PO Q8H PRN (Reason: Spasms) RF: 0 hydrocodone-acetaminophen 5-325 mg tablet 2 tab PO Q4H PRN (Reason: Pain, Severe) Qty: 30 RF: 0 zolpidem 5 MG tablet 5 mg PO BEDTIME RF: 0 dextromethorphan-guaifenesin [Val-Tussin DM] 10-100 mg/5 mL Syrup 10 ml PO Q6HR PRN (Reason: Cough) RF: 0 zolpidem 5 mg Tablet 5 mg PO BEDTIME PRN (Reason: Sleep) RF: 0 lisinopril 2.5 mg Tablet 2.5 mg PO DAILY RF: 0 oxycodone [OxyContin] 15 mg Tablet,Oral Only,Ext.Rel.12 Hr 15 mg PO Q12H RF: 0 lidocaine 4 % Adhesive Patch,Medicated 2 patch TOPICAL BID RF: 0 tizanidine 2 mg Tablet 2 mg PO Q8H PRN (Reason: Muscle Spasm) RF: 0 diazepam 5 MG tablet 5 mg PO DAILY RF: 0 Referrals: Jamie Becerra MD [Primary Care Provider] -
[2018-07-05] MEDS: HYDROCODONE/ACET 5/325 TABLET 2 TAB PO (06:45)
[2018-07-05] MEDS: METFORMIN HCL 500 MG TABLET PO ×2 (06:49→07:57)
[2018-07-05] MEDS: LISINOPRIL 5 MG TABLET PO (06:51)
--- NOTE | 2018-07-05 08:00 | PC.NURSE ---
easily awaken with verbal stimuli, cooperative with care. denies any discomfort. medicated as ordered, breakfast given.
--- NOTE | 2018-07-05 09:00 | PC.NURSE ---
[facility]. [place] [phone]
--- NOTE | 2018-07-05 09:01 | PC.NURSE ---
per Dr Betancur, someone from [facility] is in route today.
--- NOTE | 2018-07-05 15:54 | PC.NURSE ---
[phone] fax number at [facility] comm.
--- NOTE | 2018-07-05 16:24 | CM.SWNOTE ---
DCP/continued: Received referral this AM from ED requesting assistance with SNF placement. Several SNF's had been called last pm. HUMAN GEOGRAPHY FACULTY MEMBER placed calls to the following: [facility], [facility], [facility], [facility], [facility], and [facility]. All facilities faxed and refused. Met with patient re: placement. Patient believes the reason he is not being accepted at local SNF's is because of FCC. 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 Patient alert and oriented during visit and RN reports no disruptive behavior. Placed call to [facility] re: bed availability spoke with Jenni. She reports that they do have bed. Information faxed. Dr. Hearn reviewed and signed previous discharge orders and wrote new scripts. Patient requesting that HUMAN GEOGRAPHY FACULTY MEMBER speak with Sara [place] at [facility]. Per patient he is currently Medicaid pending. Placed call to Sara and she supports CM team in finding SNF. Per Sara [facility] file made against [facility]. Sara is not officially patient's CM as of now but does report that she will assist anyway she can with placement. Notified Sara that [facility] is reviewing. Sara will call and speak with Jenni. Received return call indicating that [facility] can accept today. However, they cannot provide transport. Transport to be arranged through [facility] and billed to [facility]. ED director Tonia kimble. P: [facility] today. KAL Gabriel
--- NOTE | 2018-07-06 10:16 | CM.DPC ---
DCP Cont: Received a call from Jenni ram [place] requesting a current med list. She states the list we sent yesterday had the patient's previous admission date on it. The only meds I could find were on the patient's ER report. I faxed her the ER Physician Documentation report. Fax confirmation scanned in. Macrina Restrepo, Care Workers Compensation Claims Examiner
--- NOTE | 2018-07-19 15:39 | CM.DPC ---
Phone message from pt BRITTANY received a message from the pt this afternoon 07/19/18 stating that he is still at [facility] for ongoing rehab needs but that he just received information that he now qualifies for Medicaid but that he will now be required to cover the copay and pt states that he cannot financially pay the copay. Therefore pt states he is being discharged from [facility] and he is right back in the same situation of needing a SNF and not safe for my RV alone again. Pt states he plans to call his [facility] [place] next but was requesting call back from DCP BRITTANY to his cell phone [phone]. BRITTANY unable to assist pt with current placement need as he is not a current pt and already has an assigned Senior Research Fellow through [facility] and currently too high of triage needs for current admitted patients. BRITTANY left msg for [facility] [place] [phone] to follow up with pt when available. KAL Engel
== END 2018-07-05 17:22 | disposition home or self-care (01) ==
PROVIDERS: Emergency Medicine; Emergency Provider Emergency Medicine; PCP Internal Medicine
DX: M25.471 Effusion, right ankle (principal); Z98.890 Other specified postprocedural states
CPT/HCPCS: 36591; 80048; 85025; 99283; 99285

== ENCOUNTER 2018-11-29 14:07 | Emergency (ER) | payer MEDICARE, MEDICAID, SELFPAY ==
[2018-06-27 00:35] VITALS: BMI 31.4
[2018-11-29 14:12] VITALS: BP 155/108; PULSE 115; RESP 20; TEMP 36.4; O2SAT 97
[2018-11-29 16:19] LABS: Add Manual Diff / Slide Review NO; Basophils Absolute Auto 0 /uL (0-100); Basophils Percent Auto 0.4 % (0-2); Eosinophils Absolute Auto 100 /uL (0-450); Eosinophils Percent Auto 1.2 % (2-4); Hemoglobin 15.6 g/dL (13.5-17.5); Lymphocytes Absolute Auto 1400 /uL (1100-4500); Lymphocytes Percent Auto 14.2 % (25-40); Mean Corpuscular HGB Conc 35.5 % (30-36); Mean Corpuscular Volume 101.4 fL (80-100); Monocytes Absolute Auto 800 /uL (0-900); Monocytes Percent Auto 8.1 % (3-14); Neutrophils Absolute Auto 7600 /uL (1500-7000); Neutrophils Percent Auto 76.1 % (50-75); Platelet Count 229 X10^3/uL (150-400); Red Blood Cell Count 4.34 X10^6/uL (4.5-5.9); Red Cell Distribution Width 13.9 % (11.6-14.8)
[2018-11-29 16:35] LABS: Alanine Aminotransferase 26 IU/L (21-72); Albumin 4.8 g/dL (3.5-5.0); Albumin Globulin Ratio 1.5 (1.0-2.8); Alkaline Phosphatase 121 U/L (38-126); Aspartate Aminotransferase 35 IU/L (17-59); BUN Creatinine Ratio 31.4 (6-22); Bilirubin Total 0.8 mg/dL (0.2-1.3); Blood Urea Nitrogen 22 mg/dL (9-20); Calcium 10.1 mg/dL (8.4-10.2); Carbon Dioxide 23 mmol/L (22-32); Chloride 103 mmol/L (98-107); Estimated Glomerular Filt Rate > 60.0 mL/min (>60); Globulin 3.2 g/dL (1.7-4.1); Glucose 111 mg/dL (80-110); Lactate (Lactic Acid) 1.3 mmol/L (0.7-2.1); Sodium 141 mmol/L (137-145)
[2018-11-29 16:40] LABS: HEMOLYSIS 47 (0-50); Potassium 4.5 mmol/L (3.4-5.1)
[2018-11-29 16:52] LABS: Procalcitonin < 0.05 ng/mL (<0.5)
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
== END 2018-11-29 17:17 | disposition home or self-care (01) ==
PROVIDERS: Emergency Provider Nurse Practitioner Family; PCP Internal Medicine
DX: L03.90 Cellulitis, unspecified (principal)
CPT/HCPCS: 36415; 80053; 83605; 84145; 85025; 99282; 99283

== ENCOUNTER 2019-04-23 14:35 | Emergency (ER) | payer MEDICARE, MEDICAID, SELFPAY ==
[2019-02-01 15:52] VITALS: BMI 31.4
[2019-04-23 14:37] VITALS: BP 135/83; PULSE 106; RESP 22; TEMP 36.3; O2SAT 98
--- NOTE | 2019-04-23 20:11 | ED.BACK ---
HPI - Back Pain/Injury General Chief Complaint: Back Pain/Injury Stated Complaint: pain Source: patient History of Present Illness HPI Narrative: This patient was not seen by myself or interviewed. He left without treatment. Related Data Home Medications Medication Instructions Recorded Confirmed metformin [Glucophage] 500 mg PO BID #0 10/13/11 07/04/18 lisinopril 5 mg PO DAILY #0 08/26/16 04/23/19 acetaminophen 650 mg PO PRN PRN #0 07/05/17 07/05/18 meclizine 25 mg PO TID PRN 08/16/17 04/23/19 mupirocin 1 applic TOPICAL DIRECTED 08/19/17 11/29/18 diazepam 5 mg PO DAILY 07/05/18 04/23/19 lidocaine 2 patch TOPICAL BID 07/05/18 07/05/18 oxycodone [OxyContin] 15 mg PO Q12H 07/05/18 07/05/18 tizanidine 2 mg PO Q8H PRN 07/05/18 11/29/18 zolpidem 5 mg PO BEDTIME PRN 07/05/18 11/29/18 bisacodyl 10 mg rectal suppository 10 mg MO DAILY PRN 03/05/19 03/05/19 carboxymethylcellulose sodium 0.5 EYE-BOTH QID each 03/05/19 03/05/19 % eye drops in a dropperette naloxone 4 mg/actuation nasal spray 4 mg NASAL Q3M PRN 03/05/19 03/05/19 omeprazole 20 mg tablet,delayed 20 mg PO DAILY 03/05/19 04/23/19 release sennosides 8.6 mg tablet 17.2 mg PO BID PRN 03/05/19 03/05/19 albuterol sulfate [Ventolin HFA] 1 puff INHALATION PRN PRN 04/23/19 04/23/19 Allergies Allergy/AdvReac Type Severity Reaction Status Date / Time NSAIDS (Non-Steroidal AdvReac Intermediate BLEEDING Verified 03/05/19 13:26 Anti-Inflamma ULCERS celecoxib AdvReac Unknown Verified 03/05/19 13:26 diclofenac AdvReac Unknown Verified 03/05/19 13:26 prednisone AdvReac Unknown Verified 03/05/19 13:26 Patient History Medical History (Updated 04/23/19 @ 15:30 by Manny Horta RN) Asthma (Acute) Chronic back pain (Acute) Chronic low back pain (Chronic) Chronic pain (Acute) COPD (chronic obstructive pulmonary disease) (Acute) Diabetes (Acute) Duodenal ulcer (Acute) History of cellulitis (Acute) History of DVT (deep vein thrombosis) (Acute) History of MRSA infection (Acute) Hyperlipidemia (Acute) Hypertension (Acute) Lumbar stenosis with neurogenic claudication (Acute) Tobacco abuse (Acute) Surgical History (Updated 03/05/19 @ 13:46 by Diego English DO) History of ankle fusion (Acute) History of arthroplasty of right ankle (Acute) History of gastric bypass (Acute) History of hemorrhoidectomy (Acute) S/P cervical spinal fusion (Acute) S/P cervical spinal fusion (Acute) Status post lumbar laminectomy (Acute) Social History household members: none Smoking Status: Former smoker Smoking Status: Former smoker alcohol intake frequency: holidays/special occasions only Substance Use Type: does not use Exam Initial Vital Signs Initial Vital Signs: Vital Signs Temperature 97.3 F L 04/23/19 14:37 Pulse Rate 106 H 04/23/19 14:37 Respiratory Rate 22 04/23/19 14:37 Blood Pressure 135/83 04/23/19 14:37 Pulse Oximetry 98 04/23/19 14:37 Course Vital Signs Vital signs: Vital Signs - 8 hr 04/23/19 14:37 Temperature 97.3 F L Pulse Rate 106 H Respiratory Rate 22 Blood Pressure 135/83 Pulse Oximetry 98 MDM - Back Pain/Injury MDM Narrative Medical decision making narrative: This 68-year-old male was not seen by myself, interviewed or examined. He left without treatment or being seen and evaluated. Discharge Plan Departure Patient Disposition: Left Without Being Seen Clinical Impression: Patient left without being seen Discharge Date/Time: 04/23/19 15:30
== END 2019-04-23 15:30 | disposition left against medical advice (07) ==
PROVIDERS: Emergency Provider Emergency Medicine; PCP Internal Medicine
CPT/HCPCS: 99281

== ENCOUNTER 2019-07-03 08:03 | Outpatient (CLI) | payer MEDICARE, MEDICAID, SELFPAY ==
[2019-02-01 15:52] VITALS: BMI 31.4
[2019-07-03] VITALS (8 sets, daily range): BP systolic 102–140; BP diastolic 68–85; PULSE 75–97; RESP 15–18; TEMP 36.1–36.5; O2SAT 97–98; BMI 33.2
--- NOTE | 2019-07-03 | DI.RAD.S_ITS ---
PROCEDURE: FL MEYELOGRAM SPINE CERVICAL COMPARISON: [facility], CT, CT CERVIAL SPINE W CON, 07/03/2019, 9:53. [facility], CT, CT LUMBAR SPINE W CON, 07/03/2019, 9:50. Outside Facility, RG, XR L-SPINE 4-6V, 05/23/2019, 14:30. [facility], MR, MR LUMBAR SPINE WITH/WITHOUT CONTRAST, 12/19/2018, 12:59. INDICATIONS: PARESTHESIA OF SKIN FINDINGS: After obtaining informed consent the C2-C3 right interlaminar notch area was entered with a 20 gauge spinal needle, positioning was confirmed, and iodinated nonionic contrast was instilled for myelography by subsequent CT scanning. IMPRESSION: Successful intrathecal contrast injection for subsequent CT myelography. Dictated by: Ángel Guo M.D. on 07/03/2019 at 10:18 Approved by: Ángel Guo M.D. on 07/03/2019 at 10:19
--- NOTE | 2019-07-03 | DI.CT.S_ITS ---
PROCEDURE: CT LUMBAR SPINE W CON INDICATIONS: PARESTHESIA OF SKIN TECHNIQUE: After the intrathecal administration of 15 mL intrathecal contrast, 3 mm thick sections acquired from T12 to the sacrum. Sagittal and coronal reformats were then constructed. For radiation dose reduction, the following was used: automated exposure control. COMPARISON: [facility], CT, ABDOMEN/PELVIS WITH CONTRAST, 05/16/2014, 15:08. [facility], MR, L-SPINE WITHOUT CONTRAST, 01/31/2007, 19:13. [facility], CT, ABDOMEN/PELVIS WITH CONTRAST, 06/16/2017, 22:43. [facility], CT, CT CERVIAL SPINE W CON, 07/03/2019, 9:53. [facility], RF, FL MEYELOGRAM SPINE CERVICAL, 07/03/2019, 8:12. Outside Facility, RG, XR L-SPINE 4-6V, 05/23/2019, 14:30. FINDINGS: Image quality: Excellent. Bones: No spondylolysis or spondylolisthesis. No suspicious bony lesions. No acute fractures. Soft tissues: No retroperitoneal masses. Visualized aorta demonstrates normal caliber. Atherosclerotic calcification is noted. A nonobstructing 2-3 mm a right kidney stone can be seen, as on series 3 image 59. Diverticulosis is seen, without findings of active diverticulitis. Mild levoconvex scoliotic curvature is noted. Minimal retrolisthesis is seen at L2-L3, L3-L4, and L4-L5. Postoperative changes are seen, with removal of portions of the posterior elements at L3 and L4. T12-L1: Normal appearance. L1-L2: The disc is well-preserved. Mild disc bulge is seen. No significant neural foraminal or central canal narrowing can be seen. L2-L3: Mild loss of disc height is seen. Vacuum disc phenomenon is seen at this level. At least moderate disc bulge is seen. Moderate bilateral neural foraminal narrowing is seen. Mild to moderate central canal narrowing is seen. L3-L4: Moderate to severe loss of disc height is seen on the right side. Endplate irregularity and sclerosis can be seen. Bridging endplate osteophytes can be seen on the right side. Moderate to prominent disc bulge is seen, which is eccentric to the right. There is moderate to severe bilateral neural foraminal narrowing seen. No central canal narrowing is seen. L4-L5: Mild loss of disc height is seen. Vacuum disc phenomenon is seen at this level. At least moderate disc bulge is seen. Bridging endplate osteophytes are seen on the left. There is moderate right-sided and mild left-sided facet hypertrophy seen. There is moderate to severe bilateral neural foraminal narrowing seen. No significant central canal narrowing is seen. L5-S1: The disc height is well-preserved. Mild generalized disc bulge is seen. There is at least moderate right-sided and mild to moderate left-sided facet hypertrophy seen. There is mild left-sided and no right-sided neural foraminal narrowing seen. No central canal narrowing is seen. Miscellaneous: Nerve roots appear unremarkable throughout. No nerve root clumping to suggest arachnoiditis. IMPRESSION: Postoperative changes are seen, with removal of portions of the posterior elements at L3 and L4. Moderate to severe bilateral neural foraminal narrowing can be seen at L3-L4 and L4-L5 Mild levoconvex scoliotic curvature. Incidental note is made of: Nonobstructing right-sided kidney stone Diverticulosis is seen, without findings of active diverticulitis. Dictated by: Werner Hernandez M.D. on 07/03/2019 at 9:19 Approved by: Werner Hernandez M.D. on 07/03/2019 at 9:26
--- NOTE | 2019-07-03 | DI.CT.S_ITS ---
PROCEDURE: CT CERVIAL SPINE W CON INDICATIONS: PARESTHESIA OF SKIN TECHNIQUE: After the administration of 10mL intrathecal contrast, 3 mm thick sections acquired from the skull base to the T1 level. Sagittal and coronal reformats were then constructed. For radiation dose reduction, the following was used: automated exposure control, adjustment of mA and/or kV according to patient size. COMPARISON: [facility], MR, C-SPINE WITH&WITHOUT CONTRAST, 05/03/2007, 7:42. [facility], CT, HEAD WITHOUT CONTRAST, 10/18/2006, 14:57. [facility], MR, C-SPINE WITHOUT CONTRAST, 01/31/2007, 18:30. [facility], CT, CT LUMBAR SPINE W CON, 07/03/2019, 9:50. [facility], RF, [place] MEYELOGRAM SPINE CERVICAL, 07/03/2019, 8:12. [facility], CR, CERVICAL SPINE 2 OR 3 VIEWS, 10/13/2011, 12:56. [facility], CR, CERVICAL SPINE 2 OR 3 VIEWS, 01/16/2011, 18:27. [facility], CT, SOFT TISSUE NECK WITHOUT CONTR, 03/26/2016, 17:34. FINDINGS: Image quality: Diagnostic, with note made of motion artifact. Bones and alignment: No acute fractures. No suspicious bony lesions. Soft tissues: No paraspinal masses. Prevertebral soft tissues are normal in thickness. Visualized neck vasculature appears normal in size. There is mild reversal of the normal cervical lordosis, with the apex at the C5-C6 level. Grade 1 anterolisthesis is seen at C3-C4 and C4-C5. There is minimal retrolisthesis seen at C2-C3. C2-C3: The disc height is relatively well-preserved. Minimal disc osteophyte complex is seen. No significant neural foraminal or central canal narrowing can be seen. C3-C4: Mild loss of disc height is seen. Moderate disc osteophyte complex is seen, which is eccentric to the left. Uncovertebral joint hypertrophy is seen at this level. There is at least moderate left-sided and moderate right-sided neural foraminal narrowing seen. [id number] central canal narrowing is seen, with mild mass effect upon the ventral spinal cord. C4-C5: The disc height is well preserved. Bridging anterior osteophytes are seen. Mild disc osteophyte complex is seen. There is mild to moderate left-sided and no significant right-sided neural foraminal narrowing seen. Mild central canal narrowing is seen. C5-C6: Postoperative changes are seen at this level with anterior fixation hardware. The hardware is well-placed. A disc spacer can be seen. No findings of hardware failure or hardware loosening are seen. Moderate generalized disc osteophyte complex is seen. Moderate bilateral neural foraminal narrowing is seen. No significant central canal narrowing is seen. C6-C7: At least moderate loss of disc height can be seen. Bridging endplate osteophytes are seen. Endplate irregularity and sclerosis can be seen. Mild to moderate disc osteophyte complex is seen, with a mild central disc osteophyte protrusion. There is moderate bilateral neural foraminal narrowing seen, left worse than right. Mild to moderate central canal narrowing is seen, with associated mild mass effect upon the ventral spinal cord. C7-T1: Moderate loss of disc height is seen. Mild to moderate disc osteophyte complex is seen. Uncovertebral joint hypertrophy is seen at this level. Moderate bilateral neural foraminal narrowing is seen. Mild central canal narrowing is seen. Miscellaneous: Visualized intracranial structures appear unremarkable. IMPRESSION: Unremarkable anterior fixation hardware at C5-C6. Multiple levels of degenerative change are seen, which are overall most prominent at C3-C4 and C6-C7. Dictated by: Wenrer Hernandez M.D. on 07/03/2019 at 9:26 Approved by: Werner Hernandez M.D. on 07/03/2019 at 9:35
[2019-07-03 08:38] LABS: Basophils Absolute Auto 0 /uL (0-100); Eosinophils Absolute Auto 200 /uL (0-450); Neutrophils Absolute Auto 3100 /uL (1500-7000); Platelet Count 174 X10^3/uL (150-400); Red Cell Distribution Width 13.4 % (11.6-14.8); White Blood Cell Count 5.6 X10^3/uL (4.5-11.0)
[2019-07-03 08:45] LABS: Prothrombin Time 11.5 SECONDS (10.1-12.7)
[2019-07-03 08:46] LABS: Add Manual Diff / Slide Review NO; Basophils Percent Auto 0.6 % (0-2); Eosinophils Percent Auto 3.5 % (2-4); Hematocrit 44.9 % (41-53); Hemoglobin 15.6 g/dL (13.5-17.5); Lymphocytes Absolute Auto 1500 /uL (1100-4500); Lymphocytes Percent Auto 27.4 % (25-40); Mean Corpuscular HGB Conc 34.8 % (30-36); Mean Corpuscular Hemoglobin 36.2 PG (26-34); Mean Corpuscular Volume 104.1 fL (80-100); Monocytes Absolute Auto 800 /uL (0-900); Monocytes Percent Auto 13.7 % (3-14); Neutrophils Percent Auto 54.8 % (50-75); Red Blood Cell Count 4.31 X10^6/uL (4.5-5.9)
--- NOTE | 2019-07-03 09:24 | SUR.PREOP ---
Patient arrived late and was taken to DI quickly, unable to go over home med list with patient.
[2019-07-03] MEDS: ACETAMINOPHEN 325 MG TABLET 650 MG PO (10:21)
--- NOTE | 2019-07-03 12:22 | SUR.PHASEII ---
Patient discharged home. All discharge instructions gone over in detail with patient who states full understanding. Discharge paperwork sent with patient.
== END 2019-07-03 12:10 ==
PROVIDERS: PCP Internal Medicine; Referring Provider Orthopaedic Surgery; Visit Provider Orthopaedic Surgery
DX: R20.2 Paresthesia of skin (principal); M51.36 Other intervertebral disc degeneration, lumbar region
CPT/HCPCS: 36415; 62284; 72126; 72132; 72240; 85025; 85610

== ENCOUNTER 2019-08-02 17:07 | Emergency (ER) | payer MEDICARE, MEDICAID, SELFPAY ==
[2019-02-01 15:52] VITALS: BMI 31.4
[2019-08-02 17:47] VITALS: BP 176/81; PULSE 97; TEMP 36.3; O2SAT 98; BMI 33.5
[2019-08-02 18:33] LABS: Add Manual Diff / Slide Review NO; Basophils Absolute Auto 0 /uL (0-100); Basophils Percent Auto 0.6 % (0-2); Eosinophils Absolute Auto 100 /uL (0-450); Eosinophils Percent Auto 2.8 % (2-4); Hematocrit 42.9 % (41-53); Lymphocytes Absolute Auto 1600 /uL (1100-4500); Lymphocytes Percent Auto 29.2 % (25-40); Mean Corpuscular HGB Conc 35.1 % (30-36); Mean Corpuscular Hemoglobin 36.4 PG (26-34); Mean Corpuscular Volume 103.8 fL (80-100); Monocytes Absolute Auto 600 /uL (0-900); Monocytes Percent Auto 10.9 % (3-14); Neutrophils Absolute Auto 3000 /uL (1500-7000); Neutrophils Percent Auto 56.5 % (50-75); Platelet Count 193 X10^3/uL (150-400); Red Blood Cell Count 4.13 X10^6/uL (4.5-5.9); Red Cell Distribution Width 13.3 % (11.6-14.8); White Blood Cell Count 5.4 X10^3/uL (4.5-11.0)
[2019-08-02 18:48] LABS: BUN Creatinine Ratio 28.2 (6-22); Blood Urea Nitrogen 22 mg/dL (9-20); Calcium 9.4 mg/dL (8.4-10.2); Carbon Dioxide 22 mmol/L (22-32); Chloride 106 mmol/L (98-107); Estimated Glomerular Filt Rate > 60.0 mL/min (>60); Glucose 110 mg/dL (80-110); HEMOLYSIS < 15 (0-50); Sodium 139 mmol/L (137-145)
[2019-08-02 18:49] LABS: Lactate (Lactic Acid) 1.2 mmol/L (0.7-2.1)
[2019-08-02 18:52] LABS: C-Reactive Protein Quant 1.3 mg/dL (<1.0)
[2019-08-02 18:58] LABS: Erythrocyte Sedimentation Rate 21 MM/HR (0-15)
[2019-08-02 19:06] LABS: Procalcitonin < 0.05 ng/mL (<0.5)
[2019-08-02 19:43] VITALS: BP 130/70; PULSE 68; RESP 18; TEMP 37.1; O2SAT 97
--- NOTE | 2019-08-02 23:43 | ED_ITS ---
HPI - Skin/Abscess/Foreign Bdy <STEPHEN Alvarez - Last Filed: 08/03/19 00:00> General Chief complaint: Skin/Abscess/Foreign Body Stated complaint: infected spots on arms, and EMG Time Seen by Provider: 08/02/19 17:33 Source: patient Mode of arrival: Ambulatory Limitations: no limitations History of Present Illness HPI narrative: This is a 68-year-old male, smoker, who has significant medical history of cervical spinal fusion, lumbar laminectomy, vertigo, arthroplasty of right ankle, unsteady gait this who uses walker for ambulation, enteritis, chronic back pain who presents to ED with chief complain skin infection getting worse and reports multiple in various size excoriated skin lesion without purulent drainage in bilateral upper and lower extremities. Patient reports fe [place], chills, nausea, vomiting for YEARS and states Tmax was 100-101F. Patient stays these skin lesions are rooted from the infection from the spine nerve tracks. Patient reports jabbing pain from this skin lesions. Patient's is multiple specialty physicians at [facility]. He expressed the frustration of difficulty coordinating care and run arounds. Patient reports he needs his skin to be cleared up for the anticipation of pending surgeries. Related Data Home Medications Medication Instructions Recorded Confirmed metformin [Glucophage] 500 mg PO BID #0 10/13/11 07/04/18 lisinopril 5 mg PO DAILY #0 08/26/16 04/23/19 acetaminophen 650 mg PO PRN PRN #0 07/05/17 07/05/18 meclizine 25 mg PO TID PRN 08/16/17 04/23/19 mupirocin 1 applic TOPICAL DIRECTED 08/19/17 11/29/18 diazepam 5 mg PO DAILY 07/05/18 04/23/19 lidocaine 2 patch TOPICAL BID 07/05/18 07/05/18 oxycodone [OxyContin] 15 mg PO Q12H 07/05/18 07/05/18 tizanidine 2 mg PO Q8H PRN 07/05/18 11/29/18 zolpidem 5 mg PO BEDTIME PRN 07/05/18 11/29/18 bisacodyl 10 mg rectal suppository 10 mg CA DAILY PRN 03/05/19 03/05/19 carboxymethylcellulose sodium 0.5 EYE-BOTH QID each 03/05/19 03/05/19 % eye drops in a dropperette naloxone 4 mg/actuation nasal spray 4 mg NASAL Q3M PRN 03/05/19 03/05/19 omeprazole 20 mg tablet,delayed 20 mg PO DAILY 03/05/19 04/23/19 release sennosides 8.6 mg tablet 17.2 mg PO BID PRN 03/05/19 03/05/19 albuterol sulfate [Ventolin HFA] 1 puff INHALATION PRN PRN 04/23/19 04/23/19 Previous Rx's Medication Instructions Recorded doxycycline hyclate 100 mg PO BID 7 Days #14 cap 08/02/19 mupirocin 1 applictn TOP BID #30 gram 08/02/19 Allergies Allergy/AdvReac Type Severity Reaction Status Date / Time NSAIDS (Non-Steroidal AdvReac Intermediate BLEEDING Verified 08/02/19 17:47 Anti-Inflamma ULCERS celecoxib AdvReac Unknown Verified 08/02/19 17:47 diclofenac AdvReac Unknown Verified 08/02/19 17:47 prednisone AdvReac Unknown Verified 08/02/19 17:47 Review of Systems <STEPHEN Alvarez - Last Filed: 08/03/19 00:00> Review of Systems Narrative: General: See HPI HEENT: Denies sinus pain, ear pain, sore throat, difficulty swallowing, dizziness. Respiratory: Denies dyspnea, cough, wheezing, hemoptysis, sputum. Cardiovascular: Denies chest pain, palpitations, orthopnea, edema. Gastrointestinal: Denies nausea, vomiting, abdominal pain, diarrhea, constipation, melena. : Denies dysuria, frequency, incontinence, hematuria, urinary retention. Musculoskeletal: Denies weakness, (+) joint/back/ankle/extremitie pain. Skin: See HPI Neurologic: Denies weakness, headache, numbness, change in speech, confusion, seizures, incoordination. Psychiatric: No concerning psychosocial issues. 12-point review of systems is negative except for those stated above. Patient History <STEPHEN Alvarez - Last Filed: 08/03/19 00:00> Medical History Asthma (Acute) Chronic back pain (Acute) Chronic low back pain (Chronic) Chronic pain (Acute) COPD (chronic obstructive pulmonary disease) (Acute) Diabetes (Acute) Duodenal ulcer (Acute) History of cellulitis (Acute) History of DVT (deep vein thrombosis) (Acute) History of MRSA infection (Acute) Hyperlipidemia (Acute) Hypertension (Acute) Lumbar stenosis with neurogenic claudication (Acute) Tobacco abuse (Acute) Surgical History History of ankle fusion (Acute) History of arthroplasty of right ankle (Acute) History of gastric bypass (Acute) History of hemorrhoidectomy (Acute) S/P cervical spinal fusion (Acute) S/P cervical spinal fusion (Acute) Status post lumbar laminectomy (Acute) Family History Father Leukemia Mother Brain cancer Sister Heart attack Social History household members: none Smoking Status: Current every day smoker alcohol intake: current Smoking Status: Current every day smoker alcohol intake frequency: 0-2 drinks per day Substance Use Type: does not use Exam <STEPHEN Alvarez - Last Filed: 08/03/19 00:00> Narrative Exam Narrative: General appearance: well developed, well nourished, in no acute distress. Head: normocephalic, atraumatic, no scalp lesions, non-tender. ENT: Hearing grossly intact. Nose without bleeding, purulent discharge. Mucous membrane moist, no mucosal lesion. Throat without erythema, tonsillar hypertrophy or exudate. Uvula in midline, airway patent. Neck/Thyroid: neck supple, full range of motion, no visible masses or meningeal signs. No JVD, non-tender without lymphadenopathy. Skin: Various size multiple excoriated, erythematous, circular lesions in bilateral upper and lower extremities. No redness in surrounding tissue, purulent discharge, warmth noted. Heart: no clubbing, no cyanosis. Bilateral lower extremity 2+ edema. Lungs: Breathing even and unlabored. No stridor. No accessory muscles used. Able to speak in full sentences. Chest: normal shape and expansion. Abdomen: non-obese, non-distended. Neurologic: alert and oriented. Cognitive exam, [employer] and PNS grossly intact on informal exam. Psych: good eye contact, normal affect. Initial Vital Signs Initial Vital Signs: Vital Signs Temperature 97.3 F L 08/02/19 17:47 Pulse Rate 97 H 08/02/19 17:47 Blood Pressure 176/81 H 08/02/19 17:47 Pulse Oximetry 98 08/02/19 17:47 <Edmundo Betancur DO - Last Filed: 08/03/19 04:49> Initial Vital Signs Initial Vital Signs: Vital Signs Temperature 97.3 F L 08/02/19 17:47 Pulse Rate 97 H 08/02/19 17:47 Blood Pressure 176/81 H 08/02/19 17:47 Pulse Oximetry 98 08/02/19 17:47 Scores <STEPHEN Alvarez - Last Filed: 08/03/19 00:00> GCS [place] coma scale eye opening: Spontaneous [place] coma scale verbal response: Orientated [place] coma scale motor response: Obey commands [place] coma scale total score: 15 Course <STEPHEN Alvarez - Last Filed: 08/03/19 00:00> Orders Ordered: ED Orders 08/02/19 18:25 Basic Metabolic Panel Stat C-Reactive Protein Quant Stat Complete Blood Count AUTO DIFF Stat Erythrocyte Sedimentation Rate Stat Lactate (Lactic Acid) Stat Procalcitonin Stat Vital Signs Vital signs: Vital Signs - 8 hr 08/02/19 17:47 08/02/19 19:43 Temperature 97.3 F L 98.7 F Pulse Rate 97 H 68 Respiratory Rate 18 Blood Pressure 176/81 H Blood Pressure [Left Arm] 130/70 Pulse Oximetry 98 97 <Edmundo Betancur DO - Last Filed: 08/03/19 04:49> Orders Ordered: ED Orders 08/02/19 18:25 Basic Metabolic Panel Stat C-Reactive Protein Quant Stat Complete Blood Count AUTO DIFF Stat Erythrocyte Sedimentation Rate Stat Lactate (Lactic Acid) Stat Procalcitonin Stat Vital Signs Vital signs: Vital Signs - 8 hr 08/02/19 17:47 08/02/19 19:43 Temperature 97.3 F L 98.7 F Pulse Rate 97 H 68 Respiratory Rate 18 Blood Pressure 176/81 H Blood Pressure [Left Arm] 130/70 Pulse Oximetry 98 97 MDM - Skin/Abscess/Foreign Bdy <STEPHEN Alvarez - Last Filed: 08/03/19 00:00> Differential Diagnosis Differential diagnosis: Likely cellulitis and other (excoriated superficial skin infection) Medical Records Attestation: I reviewed the patient's medical records. Lab Data Attestation: I reviewed the patient's lab results. Result diagrams: 08/02/19 18:25 08/02/19 18:25 Labs: Lab Results 08/02/19 08/02/19 08/02/19 Range/Units 18:25 18:25 18:25 WBC 5.4 (4.5-11.0) X10^3/uL RBC 4.13 L (4.5-5.9) X10^6/uL Hgb 15.0 (13.5-17.5) g/dL Hct 42.9 (41-53) % MCV 103.8 H (80-100) fL MCH 36.4 H (26-34) PG MCHC 35.1 (30-36) % RDW 13.3 (11.6-14.8) % Plt Count 193 (150-400) X10^3/uL Neut % (Auto) 56.5 (50-75) % Lymph % (Auto) 29.2 (25-40) % [place] % (Auto) 10.9 (3-14) % Eos % (Auto) 2.8 (2-4) % Baso % (Auto) 0.6 (0-2) % Neut # (Auto) 3000 (7084-0725) /uL Lymph # (Auto) 1600 (4922-6622) /uL [place] # (Auto) 600 (0-900) /uL Eos # (Auto) 100 (0-450) /uL Baso # (Auto) 0 (0-100) /uL ESR (0-15) MM/HR Sodium (137-145) mmol/L Potassium (3.4-5.1) mmol/L Chloride (98-107) mmol/L Carbon Dioxide (22-32) mmol/L BUN (9-20) mg/dL Creatinine (0.66-1.25) mg/dL Estimated GFR (>60) mL/min BUN/Creatinine Ratio (6-22) Glucose (80-110) mg/dL Lactate 1.2 (0.7-2.1) mmol/L Calcium (8.4-10.2) mg/dL C-Reactive Protein (<1.0) mg/dL Procalcitonin < 0.05 (<0.5) ng/mL 08/02/19 08/02/19 08/02/19 Range/Units 18:25 18:25 18:25 WBC (4.5-11.0) X10^3/uL RBC (4.5-5.9) X10^6/uL Hgb (13.5-17.5) g/dL Hct (41-53) % MCV (80-100) fL MCH (26-34) PG MCHC (30-36) % RDW (11.6-14.8) % Plt Count (150-400) X10^3/uL Neut % (Auto) (50-75) % Lymph % (Auto) (25-40) % [place] % (Auto) (3-14) % Eos % (Auto) (2-4) % Baso % (Auto) (0-2) % Neut # (Auto) (2335-7600) /uL Lymph # (Auto) (6454-4461) /uL [place] # (Auto) (0-900) /uL Eos # (Auto) (0-450) /uL Baso # (Auto) (0-100) /uL ESR 21 H (0-15) MM/HR Sodium 139 (137-145) mmol/L Potassium 4.0 (3.4-5.1) mmol/L Chloride 106 (98-107) mmol/L Carbon Dioxide 22 (22-32) mmol/L BUN 22 H (9-20) mg/dL Creatinine 0.78 (0.66-1.25) mg/dL Estimated GFR > 60.0 (>60) mL/min BUN/Creatinine Ratio 28.2 H (6-22) Glucose 110 (80-110) mg/dL Lactate (0.7-2.1) mmol/L Calcium 9.4 (8.4-10.2) mg/dL C-Reactive Protein 1.3 H (<1.0) mg/dL Procalcitonin (<0.5) ng/mL MDM Narrative Medical decision making narrative: This is a 68 year old male who presents to ED with multiple in various size excoriated skin lesion/cellulitis and requesting antibiotic medication. Patient was seen in ED with similar chief complain in the past several times. Patient is afebrile within normal range of vital signs. Patient reports constitutional symptoms for YEARS. CBC, lactate, procalcitonin does not reflect severe infection. Patient has mild elevation in early infection/inflammatory indicators CRP and ESR of 1.3 and 21. Patient discharged to home with 7 day course of doxycycline 100 mg dose with mupirocin for topical use. Return precautions were discussed with the patient and advised to follow-u p with his specialty providers to arrange further workup and appointments for surgical interventions. Patient verbalized understanding in agreement with treatment plan. <Edmundo Betancur DO - Last Filed: 08/03/19 04:49> Lab Data Labs: Lab Results 08/02/19 08/02/19 08/02/19 Range/Units 18:25 18:25 18:25 WBC 5.4 (4.5-11.0) X10^3/uL RBC 4.13 L (4.5-5.9) X10^6/uL Hgb 15.0 (13.5-17.5) g/dL Hct 42.9 (41-53) % MCV 103.8 H (80-100) fL MCH 36.4 H (26-34) PG MCHC 35.1 (30-36) % RDW 13.3 (11.6-14.8) % Plt Count 193 (150-400) X10^3/uL Neut % (Auto) 56.5 (50-75) % Lymph % (Auto) 29.2 (25-40) % [place] % (Auto) 10.9 (3-14) % Eos % (Auto) 2.8 (2-4) % Baso % (Auto) 0.6 (0-2) % Neut # (Auto) 3000 (2014-7189) /uL Lymph # (Auto) 1600 (8406-2905) /uL [place] # (Auto) 600 (0-900) /uL Eos # (Auto) 100 (0-450) /uL Baso # (Auto) 0 (0-100) /uL ESR (0-15) MM/HR Sodium (137-145) mmol/L Potassium (3.4-5.1) mmol/L Chloride (98-107) mmol/L Carbon Dioxide (22-32) mmol/L BUN (9-20) mg/dL Creatinine (0.66-1.25) mg/dL Estimated GFR (>60) mL/min BUN/Creatinine Ratio (6-22) Glucose (80-110) mg/dL Lactate 1.2 (0.7-2.1) mmol/L Calcium (8.4-10.2) mg/dL C-Reactive Protein (<1.0) mg/dL Procalcitonin < 0.05 (<0.5) ng/mL 08/02/19 08/02/19 08/02/19 Range/Units 18:25 18:25 18:25 WBC (4.5-11.0) X10^3/uL RBC (4.5-5.9) X10^6/uL Hgb (13.5-17.5) g/dL Hct (41-53) % MCV (80-100) fL MCH (26-34) PG MCHC (30-36) % RDW (11.6-14.8) % Plt Count (150-400) X10^3/uL Neut % (Auto) (50-75) % Lymph % (Auto) (25-40) % [place] % (Auto) (3-14) % Eos % (Auto) (2-4) % Baso % (Auto) (0-2) % Neut # (Auto) (9038-8506) /uL Lymph # (Auto) (9543-6875) /uL [place] # (Auto) (0-900) /uL Eos # (Auto) (0-450) /uL Baso # (Auto) (0-100) /uL ESR 21 H (0-15) MM/HR Sodium 139 (137-145) mmol/L Potassium 4.0 (3.4-5.1) mmol/L Chloride 106 (98-107) mmol/L Carbon Dioxide 22 (22-32) mmol/L BUN 22 H (9-20) mg/dL Creatinine 0.78 (0.66-1.25) mg/dL Estimated GFR > 60.0 (>60) mL/min BUN/Creatinine Ratio 28.2 H (6-22) Glucose 110 (80-110) mg/dL Lactate (0.7-2.1) mmol/L Calcium 9.4 (8.4-10.2) mg/dL C-Reactive Protein 1.3 H (<1.0) mg/dL Procalcitonin (<0.5) ng/mL Discharge Plan Departure Patient Disposition: Home Clinical Impression: Skin lesions, generalized Discharge Date/Time: 08/02/19 19:52 Activity Restrictions/Additional Instructions: You have been diagnosed with [multiple and very a size of excoriated skin lesion in upper and lower extremities. No signs of sepsis. Please start taking antibiotic medication doxycycline twice a day for next 7 days and use mupirocin ointment on affected site twice a day.]. What to do: *Take your medications as directed. *Follow up with your primary care provider in 2-3 days, call for an appointment. Please follow up with her specialty doctors to coordinate cares and pending surgical procedures. Let them know you were seen in the ED and that we asked you to be seen in follow up. *Return to ED if you have any new, worsening, or concerning symptoms, such as [chest pain, breathing difficulty, unable to tolerate fluids, high fever, feeling like faint, purulent drainage from her wound, or any acute concerns]. Prescriptions: New doxycycline hyclate 100 mg capsule 100 mg PO BID 7 Days Qty: 14 RF: 0 mupirocin 2 % ointment 1 applictn TOP BID Qty: 30 RF: 0 No Action metformin [Glucophage] 500 MG tablet 500 mg PO BID Qty: 0 RF: 0 lisinopril 5 MG tablet 5 mg PO DAILY Qty: 0 RF: 0 acetaminophen 325 MG tablet 650 mg PO PRN PRN (Reason: Pain, Mild) Qty: 0 RF: 0 mupirocin 2 % ointment 1 applic Topical DIRECTED RF: 0 meclizine 25 mg tablet 25 mg PO TID PRN (Reason: Dizziness) RF: 0 zolpidem 5 mg Tablet 5 mg PO BEDTIME PRN (Reason: Sleep) RF: 0 oxycodone [OxyContin] 15 mg Tablet,Oral Only,Ext.Rel.12 Hr 15 mg PO Q12H RF: 0 lidocaine 4 % Adhesive Patch,Medicated 2 patch TOPICAL BID RF: 0 tizanidine 2 mg Tablet 2 mg PO Q8H PRN (Reason: Muscle Spasm) RF: 0 diazepam 5 MG tablet 5 mg PO DAILY RF: 0 albuterol sulfate [Ventolin HFA] 90 mcg/actuation HFA aerosol inhaler 1 puff INHALATION PRN PRN (Reason: Shortness Of Breath) RF: 0 bisacodyl 10 mg suppository 10 mg CA DAILY PRN (Reason: Constipation) RF: 0 carboxymethylcellulose sodium 0.5 % dropperette EYE-BOTH QID RF: 0 Narcan 4 mg/actuation spray,non-aerosol 4 mg NASAL Q3M PRNRF: 0 omeprazole 20 mg tablet,delayed release (DR/EC) 20 mg PO DAILY RF: 0 sennosides [Senna Lax] 8.6 mg tablet 17.2 mg PO BID PRNRF: 0 Referrals: Jamie Becerra MD [Primary Care Provider] - <Edmundo Betancur DO - Last Filed: 08/03/19 04:49> Cosign ED Attending Cosignature Attestation: I was immediately available in the department for consultation. This documentation has been reviewed and I agree with assessment and plan. Supervised by Edmundo Betancur DO
== END 2019-08-02 19:52 | disposition home or self-care (01) ==
PROVIDERS: Emergency Provider Nurse Practitioner Family; PCP Internal Medicine
DX: L98.9 Disorder of the skin and subcutaneous tissue, unspecified (principal)
CPT/HCPCS: 36415; 80048; 83605; 84145; 85025; 85651; 86140; 99281; 99283

== ENCOUNTER → 2019-09-26 14:22 | Outpatient (CLI) | payer MEDICARE, MEDICAID, SELFPAY ==
[2019-02-01 15:52] VITALS: BMI 31.4
--- NOTE | 2019-09-26 | DI.RAD.S_ITS ---
PROCEDURE: XR ANKLE RT MIN 3V INDICATIONS: RIGHT FOOT PAIN TECHNIQUE: 3 views of the ankle were acquired. COMPARISON: [facility], CR, XR FOOT 3 VIEWS WEIGHT BEARING RIGHT, 11/30/2018, 15:16. [facility], CR, XR ANKLE 3+ VIEWS RIGHT, 08/01/2018, 9:37. [facility], CR, XR ANKLE 3+ VIEWS RIGHT, 09/18/2018, 13:45. [facility], CR, XR ANKLE RT MIN 3V, 08/19/2017, 17:47. FINDINGS: Bones: Plate and screw fixation of the tibiotalar and subtalar joint with expected postoperative alignment. Hardware appears intact. Scattered surgical clips noted. No acute fracture identified. lucency seen at the bone metal interface of the fixation plate appears unchanged. Interval increase in lucency projecting at the bone metal interface of the tibial fixation screws, as well as the tibiotalar screw. There is progressive callus formation. Diffuse hindfoot and midfoot degenerative sclerosis and spurring. IMPRESSION: Interval increase in lucency projecting at the bone metal interface of several of the fixation screws as above, raising possibility of hardware loosening versus infection. Please correlate clinically and if necessary continued serial radiographic surveillance versus triple phase bone scan recommended. Unchanged alignment as above Dictated by: Maximo Buckley M.D. on 09/26/2019 at 16:19 Approved by: Maximo Buckley M.D. on 09/26/2019 at 16:24
== END ==
PROVIDERS: PCP Internal Medicine; Referring Provider Podiatrist Foot & Ankle Surgery; Visit Provider Podiatrist Foot & Ankle Surgery
DX: M79.671 Pain in right foot (principal)
CPT/HCPCS: 73610

== ENCOUNTER 2019-10-08 04:52 | Emergency (ER) | payer MEDICARE, MEDICAID, SELFPAY ==
[2019-02-01 15:52] VITALS: BMI 31.4
[2019-10-08 04:50] VITALS: BP 143/88; PULSE 95; RESP 20; TEMP 36.4; O2SAT 100; BMI 33.2
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
[2019-10-08] MEDS: HYDROMORPHONE 1 MG INJ IM (05:33)
[2019-10-08 06:03] VITALS: BP 102/57; PULSE 78; RESP 14; O2SAT 99
== END 2019-10-08 06:42 | disposition home or self-care (01) ==
PROVIDERS: Emergency Provider Emergency Medicine; PCP Internal Medicine
DX: M54.12 Radiculopathy, cervical region (principal); M54.16 Radiculopathy, lumbar region; G89.29 Other chronic pain; R29.6 Repeated falls
CPT/HCPCS: 96372; 99282; 99283; J1170

== ENCOUNTER 2020-01-08 15:36 | Emergency (ER) | payer MEDICARE, MEDICAID, SELFPAY ==
[2019-02-01 15:52] VITALS: BMI 31.4
[2020-01-08 16:30] VITALS: BP 137/71; PULSE 104; RESP 16; TEMP 35.9; O2SAT 95; BMI 30.7
--- NOTE | 2020-01-08 16:34 | PC.NURSE ---
registration called to advise pt reporting more pain and having tingling numbness in leg. RN out to waiting room. Pt sitting in WC with laptop on walker doing work. showing RN pictures of his boat. Pt in NAD. triage completed.
== END 2020-01-08 18:00 | disposition left against medical advice (07) ==
PROVIDERS: Emergency Provider Emergency Medicine; PCP Internal Medicine
CPT/HCPCS: 99281

== ENCOUNTER → 2020-02-19 14:54 | Outpatient (CLI) | payer MEDICARE, MEDICAID, SELFPAY ==
[2019-02-01 15:52] VITALS: BMI 31.4
--- NOTE | 2020-02-19 | DI.RAD.S_ITS ---
PROCEDURE: XR ANKLE RT MIN 3V INDICATIONS: post traumatic arthritis of right ankle TECHNIQUE: 3 views of the ankle were acquired. COMPARISON: [facility], CR, XR ANKLE RT MIN 3V, 09/26/2019, 14:41. [facility], CR, XR ANKLE RT MIN 3V, 08/19/2017, 17:47. FINDINGS: Bones: No fractures or dislocations. Ankle mortise is normally aligned. No suspicious bony lesions. Cannulated fusion screws are present crossing the tibiotalar and the talocalcaneal joints, and the previously present posterior fusion plate seen 09/26/19 has been removed. Soft tissues: No tibiotalar joint effusion. Achilles tendon appears normal. IMPRESSION: Postsurgical changes, tibiotalar and talocalcaneal fusion. No sign of device loosening or disruption. Dictated by: Ángel Guo M.D. on 02/19/2020 at 16:52 Approved by: Ángel Guo M.D. on 02/19/2020 at 16:54
== END ==
PROVIDERS: PCP Student in an Organized Health Care Education/Training Program; Referring Provider Podiatrist Foot & Ankle Surgery; Visit Provider Podiatrist Foot & Ankle Surgery
DX: M19.171 Post-traumatic osteoarthritis, right ankle and foot (principal)
CPT/HCPCS: 73610

== ENCOUNTER 2020-03-05 09:36 | Outpatient (RCR) | payer MEDICARE, MEDICAID, SELFPAY ==
[2019-02-01 15:52] VITALS: BMI 31.4
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
== END 2020-05-23 09:27 ==
LOC: PHYS 09:36
PROVIDERS: PCP Student in an Organized Health Care Education/Training Program; Referring Provider Orthopaedic Surgery; Visit Provider Orthopaedic Surgery
DX: M96.1 Postlaminectomy syndrome, not elsewhere classified (principal); Z98.890 Other specified postprocedural states; M48.062 Spinal stenosis, lumbar region with neurogenic claudication
CPT/HCPCS: 97161; 97535

== ENCOUNTER → 2023-04-13 12:35 | Outpatient (ROUT) | payer MEDICARE, MEDICAID, SELFPAY ==
[2019-02-01 15:52] VITALS: BMI 31.4
[2023-04-13 13:03] LABS: Add Manual Diff / Slide Review NO; Basophils Absolute Auto 0 /uL (0-100); Basophils Percent Auto 0.7 % (0-2); Eosinophils Absolute Auto 100 /uL (0-450); Hemoglobin 13.3 g/dL (13.5-17.5); Lymphocytes Absolute Auto 800 /uL (1100-4500); Lymphocytes Percent Auto 13.9 % (25-40); Mean Corpuscular HGB Conc 34.1 % (30-36); Mean Corpuscular Hemoglobin 36.7 PG (26-34); Mean Corpuscular Volume 107.6 fL (80-100); Monocytes Absolute Auto 600 /uL (0-900); Monocytes Percent Auto 10.7 % (3-14); Neutrophils Absolute Auto 4100 /uL (1500-7000); Neutrophils Percent Auto 72.7 % (50-75); Platelet Count 186 X10^3/uL (150-400); Red Blood Cell Count 3.63 X10^6/uL (4.5-5.9); Red Cell Distribution Width 14.3 % (11.6-14.8); White Blood Cell Count 5.6 X10^3/uL (4.5-11.0)
[2023-04-13 13:39] LABS: Blood Urea Nitrogen 15 mg/dL (9-20); Estimated Glomerular Filt Rate > 60 mL/min (>60)
[2023-04-13 16:23] LABS: Alanine Aminotransferase 22 IU/L (<50); Albumin 3.8 g/dL (3.5-5.0); Albumin Globulin Ratio 1.3 (1.0-2.8); Alkaline Phosphatase 114 U/L (38-126); Aspartate Aminotransferase 22 IU/L (17-59); Bilirubin Total 0.5 mg/dL (0.2-1.3); Bilirubin Unconjugated 0.2 mg/dL (0.0-1.1); HEMOLYSIS < 15 (0-50); Total Protein 6.8 g/dL (6.3-8.2)
== END ==
PROVIDERS: PCP Student in an Organized Health Care Education/Training Program; Visit Provider Internal Medicine Infectious Disease
DX: R78.81 Bacteremia (principal); B95.5 Unspecified streptococcus as the cause of diseases classified elsewhere
CPT/HCPCS: 80076; 82565; 84520; 85025